=== PATIENT | female | born 1940 | race Caucasian/White ===

== ENCOUNTER 2019-08-03 21:58 | Emergency (ER) | payer MEDICARE, SELFPAY ==
--- NOTE | ~2019-08-03 | CT_ITS ---
EXAMINATION: CT brain wo con EXAM DATE: 08/03/2019 23:48 INDICATION: Fell 3 days ago, hit head on floor. TECHNIQUE: Spiral CT of the head was performed without contrast. Axial, coronal and sagittal images were reviewed. The dose-length product (DLP) for this examination was 605.33 mGy-cm. The exposure w as tailored according to patient size, and iterative reconstruction (ASIR) was used as additional dos e reduction technique. There is no prior study for comparison. FINDINGS: There is large mass which appears to be extra-axial, overlying the right frontal lobe, paulette uring 6 x 4 x 5 cm with peripheral calcification, bulging the falx toward the left. This most likely a large meningioma. There is mild white matter low density bilaterally, partly microangiopathy but ca n't exclude some amount of edema from mass effect of this mass. No acute intraparenchymal hemorrhage, subarachnoid or subdural hemorrhage. No hydrocephalus. There is moderate cerebral atrophy. The soft tissue is unremarkable. IMPRESSION: 1. No acute intracranial findings. 2. Large mass most likely meningioma overlying right frontal lobe causing mass effect on frontal lob e and falx. Consider follow-up nonemergent neurosurgical consultation. Reviewed, dictated and finalized at location A. ING DIRECTOR IMPRESSION: 1. No acute intracranial findings. 2. Large mass most likely meningioma overlying right frontal lobe causing mass effect on frontal lobe and falx. Consider follow-up nonemergent neurosurgical consultation.
--- NOTE | ~2019-08-03 | XR_ITS ---
EXAMINATION: XR ribs RT 2V w CXR 2V EXAM DATE: 08/03/2019 23:00 INDICATION: Injury, worsening right lower rib pain posterolaterally. TECHNIQUE: Frontal projection of the upper right ribs, frontal projection of the lower right ribs, ob lique projection of the right ribs, frontal and lateral chest x-ray(s) for interpretation. There is no prior study for comparison. FINDINGS: Acute right ninth rib fracture posterolaterally. There is mild displacement. There is no so ft tissue abnormality seen. Pacemaker/AICD device. No confluent consolidation, pneumothorax or pleura l effusion suspected. IMPRESSION: Acute mildly displaced right ninth rib fracture posterolaterally. Reviewed, dictated and finalized at location A. AIDE
[2019-08-03 22:22] VITALS: BP 108/54; PULSE 79; RESP 20; TEMP 36.7; O2SAT 98
[2019-08-03 23:16] VITALS: BP 131/71; PULSE 78; RESP 16; O2SAT 97
--- NOTE | 2019-08-03 23:16 | ED.FALL ---
HPI - Fall General Chief Complaint: Fall Stated Complaint: rt rib pain s/p fall Time Seen by Provider: 08/03/19 22:02 Source: patient, family and RN notes reviewed Mode of arrival: ambulatory Limitations: no limitations History of Present Illness HPI Narrative: Pt is a 78 y/o female who presents to the ED with c/o worsening rt rib pain secondary to a fall happening 3 days ago. She notes that she fell down roughly 3 stairs at her home 3 days ago. Pt states that she injured her lt knee, lt ankle, and rt ribs during the fall. She notes that she likely struck her head during the fall, but denies any LOC. Pt's family member states that she was evaluated at an urgent care facility 3 days ago following the fall, and notes that she received negative X-Rays of her lt knee and lt ankle. She states that she has been able to walk since the fall, but notes that she has had worsening pain in her rt ribs since yesterday. Pt states that she has been taking Tylenol for her symptoms, but notes that the medication wasn't enough to alleviate her pain this evening. She states that she is currently taking ASA 81 mg. complaint: other (Rib pain secondary to fall) Onset (ago): day(s) (3) Fall from: down stairs (#) (3) Place fall occurred: home Loss of consciousness: none Symptoms prior to fall: none Context: tripped/slipped Location of injury: head and chest (rt ribs) Location of injury - extremities: Left: knee and ankle Associated symptoms (after fall): other (rt rib pain) Related Data Home Medications Medication Instructions Recorded Confirmed Adult Low Dose Aspirin 08/03/19 amlodipine 08/03/19 atorvastatin 08/03/19 eplerenone mg 08/03/19 glimepiride mg 08/03/19 hydralazine 08/03/19 lisinopril 08/03/19 metformin mg 08/03/19 metoprolol tartrate 08/03/19 mirabegron [Myrbetriq] mg PO 08/03/19 Allergies Allergy/AdvReac Type Severity Reaction Status Date / Time No Known Allergies Allergy Verified 08/03/19 22:28 Review of Systems Review of Systems: All systems reviewed & are unremarkable except as noted in HPI and below Musculoskeletal: Musculoskeletal: Reports other (rt rib pain) Neurologic: Reports other (Reports: head injury. Denies: LOC) [facility] Past Medical History Medical History Cardiac defibrillator in place Diabetes HTN (hypertension) Meningioma rt parietal Pacemaker Surgical History Surgical History History of lumpectomy of left breast History of right knee joint replacement Social History Social History Smoking status: Never smoker Exam Narrative: Exam Narrative: GENERAL: Well-appearing, well-nourished, and in no acute distress. HEAD: Normocephalic, atraumatic EYES: PERRLA and EOMI, conjunctiva clear without discharge THROAT:Mucous membranes moist, Oropharynx normal without erythema, exudate, peritonsillar swelling or fluctuance NECK: Supple, without lymphadenopathy or mass RESPIRATORY: No respiratory distress, Airway patent, Respirations non-labored, Clear to auscultation without rales, rhonchi or wheeze, right lateral rib tenderness, no swelling no ecchymosis HEART: Regular rate and rhythm. No murmur heard. Normal peripheral pulses. ABDOMEN: Soft, nontender, nondistended, normal active bowel sounds. No masses. No rebound or guarding, No organomegaly. EXTREMITIES: No edema, normal strength with full range of motion. SKIN: Warm, dry, normal color without rash NEURO: Alert and oriented x3. CN 2-12 grossly intact. No focal deficits. PSYCH: Normal mood and affect. Course Reevaluation(s) Reevaluation #1: I have discussed with patient son that about CT findings. Patient is aware of her meningioma and she has seen neurosurgery for it. Date: 08/04/19 Time: 00:16 Vital Signs Vital signs: Vital Signs Temperature 98.1 F 08/03/19 22:22 P
[2019-08-03] MEDS: TRAMADOL HCL 50 MG TABLET PO (23:57)
[2019-08-04 00:17] VITALS: BP 130/74; PULSE 72; RESP 16; O2SAT 98
[2019-08-04 01:24] VITALS: BP 128/76; PULSE 74; RESP 16; O2SAT 98
== END 2019-08-04 01:39 | disposition home or self-care (01) ==
PROVIDERS: Emergency Provider General Practice
DX: S22.31XA Fracture of one rib, right side, initial encounter for closed fracture (principal); S09.90XA Unspecified injury of head, initial encounter; E11.9 Type 2 diabetes mellitus without complications; I10 Essential (primary) hypertension; Z95.810 Presence of automatic (implantable) cardiac defibrillator; W10.9XXA Fall (on) (from) unspecified stairs and steps, initial encounter
CPT/HCPCS: 70450; 71045; 71101; 99284; A9270

== ENCOUNTER 2021-04-20 13:28 | Inpatient (IN) | payer MEDICARE, SELFPAY ==
[2021-04-20] VITALS (38 sets, daily range): BP systolic 81–145; BP diastolic 46–109; PULSE 50–151; RESP 14–33; TEMP 36.3–36.6; O2SAT 97; BMI 22.7
--- NOTE | ~2021-04-20 | US_ITS ---
EXAMINATION: US carotid duplex BI DATE: 04/21/2021 15:19 INDICATION: Encephalopathy with altered mental status and confusion. TECHNIQUE: Grayscale, color Doppler, and pulsed Doppler images of the cervical carotid arteries were obtained. The degree of vessel stenosis is placed in one of the following categories: normal, <50%, 5 0-69%, >=70% but less than near-occlusion, near-occlusion, or total occlusion. Note that percent sten osis relative to normal distal artery lumen diameter is indirectly measured from velocity measurement s as described by Cesar, et al. Radiology 2003; 229:340-346. COMPARISON: None. FINDINGS: RIGHT: The right common carotid artery (CCA) peak systolic velocity (PSV) is 76 cm/s. The right internal car otid artery (ICA) PSV is 102 cm/s. The right ICA end-diastolic velocity (EDV) is 11 cm/s. The right I CA/CCA PSV ratio is 1.4. Grayscale and color Doppler images yield an estimate of <50% diameter reduct ion from plaque in the ICA. The external carotid artery (ECA) PSV is 45 cm/s. There is antegrade flow in the right vertebral artery. LEFT: The left CCA PSV is 80 cm/s. The left ICA PSV is 58 cm/s. The left ICA EDV is 10 cm/s. The left ICA/C CA PSV ratio is 0.7. Grayscale and color Doppler images yield an estimate of <50% diameter reduction from plaque in the ICA. The ECA PSV is 42 cm/s. There is antegrade flow in the left vertebral artery. IMPRESSION: 1. <50% stenosis in the right internal carotid artery. 2. <50% stenosis in the left internal carotid artery. Reviewed, dictated and finalized at location A. HEAD STOCK CLERK
--- NOTE | ~2021-04-20 | CT_ITS ---
EXAMINATION: CT brain wo con EXAM DATE: 04/20/2021 14:42 INDICATION: Altered mental status. TECHNIQUE: Spiral CT of the head was performed without contrast. Axial, coronal and sagittal images were reviewed. The dose-length product (DLP) for this examination was 681.00 mGy-cm. The exposure w as tailored according to patient size, and iterative reconstruction (ASIR) was used as additional dos e reduction technique. Comparison is made to prior examination from 08/03/2019. FINDINGS: Peripherally calcified extra-axial mass overlying the right frontal lobe arising from the r ight side of the falx consistent with meningioma measuring about 6 cm. This is causing some bowing of the falx, size and appearance unchanged. There is no acute intraparenchymal hemorrhage. No evidence of intraparenchymal brain mass lesion. N o evidence of acute infarction. Please note that initial head CT has limited sensitivity for small o r acute infarctions. There is mild to moderate periventricular and subcortical hypodensity, nonspecif ic but probably related to small vessel ischemic disease. There is moderate to severe prominence of the sulci and ventricles related to cerebral atrophy. 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 There are no extra-axial collections. There is no mass effect or midline shift. The orbits are unremarkable. Soft tissue is unremarkable. The visualized sinuses and mastoid air cells are well a erated. IMPRESSION: 1. No acute intracranial findings. 2. Chronic age related findings. 3. Large meningioma unchanged. Reviewed, dictated and finalized at location A. Y LEVEL LAB TECHNICIAN
--- NOTE | 2021-04-20 13:39 | ECG_ITS ---
Measurements Intervals [place] Rate: 76 P: 65 [place]: 111 QRS: 11 QRSD: 129 T: 83 QT: 417 QTc: 469 Interpretive Statements ELECTRONIC ATRIAL PACEMAKER WITH INHIBITION ELECTRONIC VENTRICULAR PACEMAKER VENTRICULAR PREMATURE COMPLEX NO FURTHER INTERPRETATION IS POSSIBLE ATYPICAL ECG Electronically Signed On 04-20-2021 19:55:47 WEB SERVICES PROFESSIONAL by Duran Myles D.O.
[2021-04-20 14:24] LABS: Basophils Absolute Auto 0.1 K/mm3 (0.0-0.1); Basophils Percent Auto 0.7 % (0.2-1.2); Eosinophils Percent Auto 0.4 % (0-4.4); Hematocrit 38.1 % (37.0-47.0); Hemoglobin 12.7 g/dL (12.0-15.0); Immature Granulocyte Absolute 0.04 K/mm3 (0.00-0.031); Immature Granulocyte Percent A 0.4 % (0-0.5); Lymphocytes Absolute Auto 1.46 K/mm3 (0.9-3.2); Lymphocytes Percent Auto 16.1 % (18.3-44.2); Mean Corpuscular HGB Conc 33.3 g/dl (32-36); Mean Corpuscular Hemoglobin 29.1 pg (26-34); Mean Corpuscular Volume 87.2 fl (80-100); Mean Platelet Volume 8.9 fl (7.4-10.4); Monocytes Absolute Auto 0.5 K/mm3 (0.1-0.6); Monocytes Percent Auto 5.8 % (2.6-8.5); Neutrophils Absolute Auto 6.9 K/mm3 (1.3-6.7); Neutrophils Percent Auto 76.6 % (45.5-73.1); Platelet Count Result 314 k/mm3 (150-375); Red Blood Count 4.37 M/mm3 (4.2-5.4); Red Cell Distribution Width 13.1 % (11.5-14.5); White Blood Count 9.1 K/mm3 (4.5-10.0)
--- NOTE | 2021-04-20 14:25 | ED.AMS ---
HPI - Altered Mental Status General Chief Complaint: Altered Mental Status Stated Complaint: confused Time Seen by Provider: 04/20/21 14:03 Source: patient and family Mode of arrival: ambulatory Limitations: altered mental status History of Present Illness HPI narrative: 80-year-old female past medical history of pacer/ICD, diabetes. menigioma brought in for altered mental status. Patient usually alert and oriented x3 lives with family. Patient family states this morning she was unable to get out of bed or make her legs move. Afebrile, currently alert and oriented x2, she knows she is in [facility] and her name but does not know date of or president. Unable to get full review of systems currently the patient denies chest pain breath. Family states no vomiting, no falls, no shortness of breath or wheezing. Family does states she has had foul-smelling urine. No recent new medications. MD complaint: altered mental status and confusion Related Data Home Medications Medication Instructions Recorded Confirmed Adult Low Dose Aspirin 08/03/19 amlodipine 08/03/19 atorvastatin 08/03/19 eplerenone mg 08/03/19 glimepiride mg 08/03/19 hydralazine 08/03/19 lisinopril 08/03/19 metformin mg 08/03/19 metoprolol tartrate 08/03/19 mirabegron [Myrbetriq] mg PO 08/03/19 Allergies Allergy/AdvReac Type Severity Reaction Status Date / Time No Known Allergies Allergy Verified 08/03/19 22:28 Review of Systems Review of Systems: ROS unobtainable: Yes unobtainable due to mental status PMFSH Past Medical History Medical History (Updated 04/20/21 @ 16:01 by Yanique Ozuna MD) Cardiac defibrillator in place Diabetes HTN (hypertension) Meningioma rt parietal Pacemaker Surgical History Surgical History History of lumpectomy of left breast History of right knee joint replacement Social History Social History Smoking status: Never smoker Exam Narrative: General: alert, afebrile, attempting to answer all questions, confused Head: normocephalic, atraumatic Eyes: EOMI bilaterally, anicteric, no injection ENT: moist mucous membranes, oropharynx patent, no rhinorrhea Neck: supple, trachea midline, no JVD Chest: equal chest rise bilaterally, no chest wall trauma noted Lungs: clear to auscultation bilaterally, respirations unlabored CV: regular rate, no ESTRELLITA B, calf size equal bilaterally Abd: soft, non-distended, non-tender, no rebound, no gaurding, negative Brewer's : bladder non-distended EXT: no deformity noted, moving all extremities equally Skin: warm, dry, no pallor Neuro: alert, oriented x 3; CN 2-12 grossly intact, no dysarthria Psych: affect appropriate, though content normal Course Course Emergency Course: 80-year-old female with altered mental status for 1 day. Patient usually alert and oriented x3 ambulates without difficulty per family for today oriented x2 not talking and states she cannot move her legs due to being fatigued. Patient arrives afebrile, oriented x2 no complaints unable to get full review of systems due to altered mental status. Patient does have a history of meningioma. No new focal weakness, no dysarthria, cranial nerves grossly intact. CT brain with no acute process, portable chest x-ray with no acute process patient has a WBC of 9.1, with no left shift. UA straight cath with 4+ bacteriuria few white cells urine culture pending. Patient with no history of UTI will start ceftriaxone and admit for UTI and AMS. Family aware and agree with plan. Reevaluation(s) Reevaluation #1: Speaking a little bit morem,a ferbrile, IVF and antibiotic infused, await bed. Date: 04/20/21 Time: 16:55 Consultations Consultation #1: Spoke with hospitalist regarding patient, agrees with admission Date: 04/20/21 Time: 15:30 Vital Signs Vital signs: Vital Signs Temperature
[2021-04-20 14:34] LABS: Alanine Aminotransferase 21 U/L (4-35); Albumin Level 4.2 g/dL (3.5-5.1); Alkaline Phosphatase 72 U/L (38-126); Anion Gap 11 mmol/L (8-16); Aspartate Amino Transferase 24 U/L (14-36); Bilirubin,Total 0.9 mg/dL (0.2-1.3); Blood Urea Nitrogen 24 mg/dL (7-17); Calcium 9.9 mg/dL (8.4-10.2); Carbon Dioxide 23 mmol/L (22-30); Chloride 96 mmol/L (98-107); Estimated CRCL calculation 36 ml/min; Estimated Glomerular Filt Rate 53; Glucose 281 mg/dL (65-110); Potassium 4.7 mmol/L (3.4-5.0); Sodium 130 mmol/L (137-145)
[2021-04-20 14:35] LABS: Prothrombin Time 12.7 Seconds (11.1-14.7)
[2021-04-20 14:36] LABS: Partial Thromboplastin Time 29.6 SECONDS (22.3-36.8)
[2021-04-20 14:46] LABS: Add Urine Microscopic? YES; Appearance Urine Cloudy (Clear); Bacteria Urine 4+ /hpf; Bilirubin Urine Negative (Negative); Blood Urine Negative (Negative); Color Urine Yellow (Yellow); Glucose Urine UA 3+ mg/dL (Negative); Ketones Urine Negative (Negative); Leukocyte Esterase Ur Negative LEU/UL (Negative); Mucus Urine Rare /lpf; Nitrate Urine Negative (Negative); Protein Urine Negative (Negative); RBC Urine 0-2 /hpf (0-2); Specific Grav Ur 1.014 (1.001-1.035); Squamous Epithelial Cell Urine Rare /hpf (Few); Urobilinogen Urine Negative mg/dL (<2.0)
[2021-04-20] MEDS: ONDANSETRON INJ 4 MG/2 ML VIAL IV PUSH (14:51)
[2021-04-20] MEDS: SODIUM CHLORIDE 0.9% IV 1,000 ML 999 ML IV CONT (14:52)
--- NOTE | 2021-04-20 15:04 | ECG_ITS ---
Measurements Intervals [place] Rate: 82 P: 76 DC: 94 QRS: -76 QRSD: 132 T: 105 QT: 417 QTc: 489 Interpretive Statements ATRIAL SENSE- ELECTRONIC VENTRICULAR PACEMAKER BASELINE ARTIFACT- V4-V5 NO FURTHER INTERPRETATION IS POSSIBLE ATYPICAL ECG Electronically Signed On 04-21-2021 17:39:34 TAIL RIPPER by Duran Myles D.O.
--- NOTE | 2021-04-20 18:37 | ADMGEN ---
This patient, Angelica Kim, was admitted to Medical Room 244-. Patient/family oriented to hospital policies and general routines including ID bracelet, bed and alarms, visiting hours, pain management, procedures, bathroom and other care routines, personal items, smoking policy, room service/diet, and visiting hours. Information on how to activate the Rapid Response Team has been discussed. Patient/Family are encouraged to report perceived risks to care and to ask questions if they do not understand what they are told or what they should do.
[2021-04-21] VITALS (9 sets, daily range): BP systolic 129–146; BP diastolic 50–72; PULSE 67–88; RESP 16–20; TEMP 36.1; O2SAT 97–100
--- NOTE | 2021-04-21 00:25 | PM.IMHP ---
H&P: HPI History of Present Illness Date/Time: 04/20/21 7010 this is a 80 year old female patient who is pleasantly confused. She was brought in to the emergency room with altered mental status. According to the family members the patient is alert orientated x3. However her son questions whether not she has dementia. The family stated that this morning she was unable to get out of bed or make her legs move. The patient is orientated to herself and is aware that she is in the hospital. However when I asked her who the president was she said her name. And she thinks this month is May. Patient denies any fever chills. The family stated that she had some foul-smelling urine today. No new medications no recent injuries. Patient's sodium was be 130. Chloride 96. BUN 24 and creatinine 1.0. Her urine was cloudy with 3+ glucose in only 7 and 9 wbc's and 4+ bacteria. The patient was started on ceftriaxone head CT was read as no acute intracranial findings. Chronic age-related findings. Large meningioma unchanged. The patient is being admitted to observation status on the date of service of 04/20/2021. Chief Complaint: Confusion Review of Systems Review of Systems: ROS unobtainable: Yes unobtainable due to mental status PMFSH Past Medical History Medical History (Updated 04/21/21 @ 00:30 by Nae Franco NP) Cardiac defibrillator in place Diabetes HTN (hypertension) Hyperlipidemia Meningioma rt parietal Pacemaker Surgical History Surgical History History of lumpectomy of left breast History of right knee joint replacement Family History Family History (Updated 04/21/21 @ 00:32 by Nae Franco NP) Unknown Unknown family medical history Social History Social History (Updated 04/21/21 @ 00:32 by Nae Franco NP) Social History: The patient lives with her family. She is listed as a full code. The patient is listed as being . She is listed as being retired as well. Her son Phill is listed as the medicare contact specialist Code status full code Smoking status: Never smoker Alcohol intake: never Substance use: never Spiritual care concerns: No Meds Home Medications and Allergies Home Medications Medication Instructions Recorded Confirmed Type eplerenone 50 mg PO DAILY 08/03/19 04/20/21 History glimepiride 6 mg PO DAILY 08/03/19 04/20/21 History hydralazine 50 mg BID 08/03/19 04/20/21 History lisinopril 20 mg PO BID 08/03/19 04/20/21 History metformin 1,000 mg PO BID 08/03/19 04/20/21 History metoprolol tartrate 100 mg PO BID 08/03/19 04/20/21 History mirabegron [Myrbetriq] 50 mg PO DAILY 08/03/19 04/20/21 History aspirin [Enteric Coated Aspirin] 81 mg PO DAILY 04/20/21 04/20/21 History atorvastatin 20 mg PO HS 04/20/21 04/20/21 History Allergies Allergy/AdvReac Type Severity Reaction Status Date / Time No Known Allergies Allergy Verified 08/03/19 22:28 Vital Signs Vital Signs - 24 hr 04/20/21 13:33 04/20/21 13:34 04/20/21 13:45 Temperature 36.3 C L Pulse Rate 90 50 L 100 Respiratory Rate 14 21 H 21 H Blood Pressure 126/61 Pulse Oximetry 04/20/21 13:46 04/20/21 14:00 04/20/21 14:01 Temperature Pulse Rate 89 122 H 112 H Respiratory Rate 33 H 15 14 Blood Pressure 120/109 H 134/73 Pulse Oximetry 04/20/21 14:15 04/20/21 14:16 04/20/21 14:47 Temperature Pulse Rate 98 112 H 81 Respiratory Rate 14 15 18 Blood Pressure 119/71 Pulse Oximetry 04/20/21 14:49 04/20/21 15:00 04/20/21 15:01 Temperature Pulse Rate 78 78 73 Respiratory Rate 14 17 16 Blood Pressure 117/63 133/53 L Pulse Oximetry 04/20/21 15:15 04/20/21 15:16 04/20/21 15:30 Temperature Pulse Rate 83 84 97 Respiratory Rate 14 19 16 Blood Pressure 113/87 Pulse Oximetry 04/20/21 15:31 04/20/21 15:45 04/20/21 15:46 Temperature Pulse Rate 113 H 151 H 149 H Respiratory Rate 16 14 17
[2021-04-21 01:02] LABS: Glucose Point of Care 135 mg/dl (65-105)
[2021-04-21 06:07] LABS: Basophils Absolute Auto 0.1 K/mm3 (0.0-0.1); Basophils Percent Auto 0.8 % (0.2-1.2); Eosinophils Absolute Auto 0.1 K/mm3 (0-0.3); Eosinophils Percent Auto 1.3 % (0-4.4); Hematocrit 34.9 % (37.0-47.0); Hemoglobin 11.3 g/dL (12.0-15.0); Immature Granulocyte Absolute 0.03 K/mm3 (0.00-0.031); Immature Granulocyte Percent A 0.4 % (0-0.5); Lymphocytes Percent Auto 22.8 % (18.3-44.2); Mean Corpuscular HGB Conc 32.4 g/dl (32-36); Mean Corpuscular Hemoglobin 29.3 pg (26-34); Mean Corpuscular Volume 90.4 fl (80-100); Mean Platelet Volume 8.9 fl (7.4-10.4); Monocytes Absolute Auto 0.7 K/mm3 (0.1-0.6); Monocytes Percent Auto 9.2 % (2.6-8.5); Neutrophils Absolute Auto 5.2 K/mm3 (1.3-6.7); Neutrophils Percent Auto 65.5 % (45.5-73.1); Platelet Count Result 249 k/mm3 (150-375); Red Blood Count 3.86 M/mm3 (4.2-5.4); Red Cell Distribution Width 13.2 % (11.5-14.5); White Blood Count 7.9 K/mm3 (4.5-10.0)
[2021-04-21 06:26] LABS: Hemoglobin A1C 6.8 % (<5.7)
[2021-04-21 06:27] LABS: Alanine Aminotransferase 16 U/L (4-35); Albumin Level 3.3 g/dL (3.5-5.1); Alkaline Phosphatase 65 U/L (38-126); Anion Gap 7 mmol/L (8-16); Aspartate Amino Transferase 19 U/L (14-36); Bilirubin,Total 0.6 mg/dL (0.2-1.3); Blood Urea Nitrogen 20 mg/dL (7-17); Calcium 9.1 mg/dL (8.4-10.2); Carbon Dioxide 23 mmol/L (22-30); Chloride 101 mmol/L (98-107); Estimated CRCL calculation 43 ml/min; Estimated Glomerular Filt Rate 60; Glucose 228 mg/dL (65-110); Magnesium 1.2 mg/dL (1.6-2.3); Potassium 4.3 mmol/L (3.4-5.0); Sodium 131 mmol/L (137-145)
[2021-04-21 06:29] LABS: Lactic Acid Reflex 1.2 mmol/L (0.7-2.1)
--- NOTE | 2021-04-21 06:29 | PHAR ---
VARIFIED Eplerenone 50 mg tablet TAKE ONE TABLET BY MOUTH EVERYDAY in pharmacy and sent back to floor (2MED) @ 06:30
[2021-04-21 07:02] LABS: Thyroid Stimulating Hormone Reflex 0.718 uIU/mL (0.465-4.68)
[2021-04-21 07:40] LABS: Glucose Point of Care 194 mg/dl (65-105)
--- NOTE | 2021-04-21 09:07 | PM.IMPN ---
Progress Note: A&P Assessment and Plan (1) Acute UTI: Code(s): N39.0 - Urinary tract infection, site not specified Status: Acute Assessment and Plan: This is a 80-year-old lady with this of dementia presenting with altered mental status. Urinalysis revealed pyuria. She was appropriately started on Rocephin while blood and urine cultures are pending. We will continue Rocephin while cultures are pending. (2) Altered mental status: Code(s): R41.82 - Altered mental status, unspecified Status: Acute Assessment and Plan: This is likely acute metabolic encephalopathy in the setting of an acute urinary infection. Patient may carry an underlying diagnosis of dementia. patient was previously with brain hemangioma. repeat head CT shows an unchanged meningioma Carotid Dopplers and an echo have been ordered, and the results are pending at the time of this dictation. The patient is pleasantly confused. Patient may also need a rn progressive care consult for placement. (3) HTN (hypertension): Code(s): I10 - Essential (primary) hypertension Status: Chronic Assessment and Plan: patient blood pressure has been on the low side, with BP as low as 81/49. Overall her blood pressure remains soft in the 99/49 - 125/63 range. will hold her home blood pressure medications wall monitoring her closely. Will allow for permissive hypertension and a permissive blood pressure of 140/90 given her presentation with altered mentation. (4) Hyperlipidemia: Code(s): E78.5 - Hyperlipidemia, unspecified Status: Chronic Assessment and Plan: Continue with atorvastatin (5) Diabetes: Code(s): E11.9 - Type 2 diabetes mellitus without complications Status: Chronic Assessment and Plan: Fasting blood sugar was 228. Accu-Chek this morning was 194. ContinueAccu-Cheks AC and HS with sliding scale insulin. Continue with metformin and glimepiride. hemoglobin A1c is at goal at 6.8. Subjective Date/time seen: 04/21/21 09:07 S: patient was out of bed to chair today. She is sitting comfortably and ordering her breakfast. She did not have any complaints. She did not appear to be in any distress. Review of Systems Review of Systems: ROS unobtainable: Yes unobtainable due to mental status ENT: Reports Normal hearing present Neurologic: Reports Normal hearing present Exam Const: General: cooperative, healthy appearing, comfortable, no acute distress, well developed, alert, awake and Physically active Nutritional Appearance: average body habitus and well nourished Orientation/consciousness: oriented to person and oriented to place Limitations: altered mental status HENMT: Head: normal to inspection, No palpable skull fracture present, normocephalic and atraumatic Ears: hearing grossly normal bilaterally and external ears normal General nose exam: Normal external nose present Mouth: Yes Normal oral and palatal mucosa present Throat: posterior oropharynx normal Eyes: General: appearance normal, both eyes and all related structures Alignment and Position: alignment normal Periorbital: periorbital findings normal Eyelids: eyelids normal Conjunctivae: conjunctivae normal Sclera: sclerae normal Cornea: corneas normal Pupils: Pupil accommodation reflex normal EOM: EOMs intact bilaterally Neck: Neck: normal visual inspection Thyroid: thyroid normal Carotids: normal carotid upstroke Lymphatic: no lymphadenopathy noted Chest: Chest palpation & inspection: normal inspection of the chest Resp: Effort & Inspection: normal respiratory effort Auscultation: clear to auscultation bilaterally Percussion: percussion normal Cardio: Palpation: normal PMI Rate: regular rate Rhythm: regular rhythm Heart sounds: S1 normal heart sound present and S2 normal heart sound present Peripheral pulses: Peripheral pulses 2+ throughout GI: Inspection: normal to inspection Auscultation
[2021-04-21] MEDS: metFORMIN HCL 500 MG TABLET 1000 MG PO ×2 (09:26→16:24)
[2021-04-21] MEDS: ASPIRIN 81 MG ENTERIC TABLET PO (09:27)
[2021-04-21] MEDS: MIRABEGRON 50 MG ER TABLET PO (09:27)
[2021-04-21] MEDS: GLIMEPIRIDE 2 MG TABLET 6 MG PO (09:27)
--- NOTE | 2021-04-21 11:43 | WPDNEURCNPN ---
Assessment and Plan Additional Plan 1. TIA versus seizures for 2 atrial fibrillation with cardiac defibrillator in place 3. Diabetes mellitus 4. Hypertension 5. 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 She was brought to the emergency room with the complaint of change in the mental status and as per the information available from the family member patient has been awake alert oriented x3 on the day of admission she was unable to get out of bed or make her legs move patient was oriented to herself and aware that she was in the hospital but she was not able to give any further information to the initial physician she thought this month of May she was also noted to have foul-smelling urine but no history of new medications or recent injuries her initial sodium was 130 with chloride of 96 BUN 24 with creatinine of 1.0 urine with 3+ glucose and 9 WBCs and 4+ bacteria she was started on ceftriaxone, CT scan was done in the emergency room which revealed no evidence of bleed or Space-Occupying Lesion large meningioma was noted which has been noted previously also and it was unchanged patient does have a history of cardiac the [place] latter in place in addition to the ongoing history of 1. Hypertension 2. Diabetes mellitus 3. 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, CT scan of the head revealed no acute intracranial findings except the large meningioma peripherally calcified overlying the right frontal lobe and arising from the right side of the falx measuring about 6cm but unchanged compared to previous studies, blood sugar was 233 with hemoglobin A1c of 6.8 Review of Systems Review of Systems: All systems reviewed & are unremarkable except as noted in HPI and below PMFSH Past Medical History Medical History Cardiac defibrillator in place Diabetes HTN (hypertension) Hyperlipidemia Meningioma rt parietal Pacemaker Surgical History Surgical History History of lumpectomy of left breast History of right knee joint replacement Family History Family History Unknown Unknown family medical history Social History Social History Social History: The patient lives with her family. She is listed as a full code. The patient is listed as being . She is listed as being retired as well. Her son Phill is listed as the breakdown person Code status full code Smoking status: Never smoker Alcohol intake: never Substance use: never Spiritual care concerns: No Meds Home Medications and Allergies Home Medications Medication Instructions Recorded Confirmed Type eplerenone 50 mg PO DAILY 08/03/19 04/20/21 History glimepiride 6 mg PO DAILY 08/03/19 04/20/21 History hydralazine 50 mg BID 08/03/19 04/20/21 History lisinopril 20 mg PO BID 08/03/19 04/20/21 History metformin 1,000 mg PO BID 08/03/19 04/20/21 History metoprolol tartrate 100 mg PO BID 08/03/19 04/20/21 History mirabegron [Myrbetriq] 50 mg PO DAILY 08/03/19 04/20/21 History aspirin [Enteric Coated Aspirin] 81 mg PO DAILY 04/20/21 04/20/21 History atorvastatin 20 mg PO HS 04/20/21 04/20/21 History Allergies Allergy/AdvReac Type Severity Reaction Status Date / Time No Known Allergies Allergy Verified 08/03/19 22:28 Vital Signs Vital Signs - 24 hr 04/20/21 13:33 04/20/21 13:34 04/20/21 13:45 Temperature 36.3 C L Pulse Rate 90 50 L 100 Respiratory Rate 14 21 H 21 H Blood Pressure 126/61 Pulse Oximetry 04/20/21 13:4
[2021-04-21 11:45] LABS: Glucose Point of Care 233 mg/dl (65-105)
[2021-04-21] MEDS: INSULIN ASPART (*BKC) 100 UNITS/ML SUB-Q (12:06)
[2021-04-21 16:30] LABS: Glucose Point of Care 181 mg/dl (65-105)
[2021-04-21] MEDS: ATORVASTATIN 20 MG TABLET PO (20:51)
[2021-04-22] VITALS (12 sets, daily range): BP systolic 106–142; BP diastolic 50–73; PULSE 77–93; RESP 14–20; TEMP 36.1–36.3; O2SAT 98
--- NOTE | 2021-04-22 | ECHO_ITS ---
Patient Info Name: Angelica Kim Age: 80 years : 1940 Gender: Female Ht: 67 in Wt: 145 lbs BSA: 1.77 m2 HR: 75 bpm BP: 146 / 67 mmHg Heart Rhythm: Sinus Rhythm Technical Quality: Fair Exam Date: 04/22/2021 2:42 PM Exam Location: [facility] Pulmonary Patient Status: Inpatient Admit Date: 04/21/2021 Staff Ordering Physician: Nae Franco NP Power Screwdriver Operator: Irma Durbin RDCS Attending Provider: Adeline Mtz MD Referring Physician: Joan ESQUIVEL; Exam Type: CA echo doppler color flow Study Info Indications - CONFUSION Complete two-dimensional, color flow and Doppler transthoracic echocardiogram is performed. Summary 1. Complete two-dimensional, color flow and Doppler transthoracic echocardiogram is performed. 2. There is mild concentric increased left ventricular wall thickness. 3. Left ventricular systolic function is normal, estimated at 60-65%. 4. Linear artifact in right ventricle suggestive of catheter(s), pacemaker lead(s), or ICD lead(s). 5. There is mild aortic valve sclerosis. 6. The mitral valve annulus is mildly calcified. Left Ventricle Left ventricular chamber dimension is normal. Left ventricular systolic function is normal, estimated at 60-65%. There is mild concentric increased left ventricular wall thickness. The left ventricular diastolic function is grade I diastolic dysfunction. Right Ventricle Linear artifact in right ventricle suggestive of catheter(s), pacemaker lead(s), or ICD lead(s). Left Atria Left atrial chamber dimension is mildly enlarged. Right Atria Right atrial chamber dimension is normal. Linear artifact in the right atrium suggestive of catheter(s), pacemaker lead(s), or ICD lead(s). Aortic Valve The aortic valve is trileaflet. There is mild aortic valve sclerosis. Pulmonic Valve The pulmonic valve is not well visualized. Mitral Valve The mitral valve has normal leaflets. The mitral valve annulus is mildly calcified. Tricuspid Valve The tricuspid valve leaflets are normal. Pericardium/Pleural The pericardium appears normal. Aorta The aortic root size at the sinus of Valsalva is normal. Left Ventricular Outflow Tract Name Value Normal LVOT 2D LVOT Diameter 2.0 cm LVOT Doppler LVOT Peak Gradient 4 mmHg LVOT Mean Gradient 2 mmHg LVOT VTI 19 cm LVOT VTI/AV VTI Ratio 0.9 LVOT Stroke Volume 62 ml Pulmonic Valve Name Value Normal RVOT Doppler RVOT Peak Gradient 2 mmHg PV Doppler PV Peak Gradient 2 mmHg Mitral Valve Name
[2021-04-22 02:53] LABS: Glucose Point of Care 181 mg/dl (65-105)
[2021-04-22 08:13] LABS: Anion Gap 6 mmol/L (8-16); Blood Urea Nitrogen 15 mg/dL (7-17); Calcium 9.7 mg/dL (8.4-10.2); Carbon Dioxide 25 mmol/L (22-30); Chloride 104 mmol/L (98-107); Estimated CRCL calculation 48 ml/min; Estimated Glomerular Filt Rate > 60; Glucose 179 mg/dL (65-110); Potassium 4.3 mmol/L (3.4-5.0); Sodium 135 mmol/L (137-145)
[2021-04-22 08:13] LABS: Glucose Point of Care 163 mg/dl (65-105)
[2021-04-22] MEDS: GLIMEPIRIDE 2 MG TABLET 6 MG PO (08:44)
[2021-04-22] MEDS: MIRABEGRON 50 MG ER TABLET PO (08:44)
[2021-04-22] MEDS: METOPROLOL TARTRATE 50 MG TAB 100 MG PO ×2 (08:44→20:53)
[2021-04-22] MEDS: lisinopriL 20 MG TABLET PO ×2 (08:46→16:41)
[2021-04-22] MEDS: ASPIRIN 81 MG ENTERIC TABLET PO (08:46)
[2021-04-22] MEDS: metFORMIN HCL 500 MG TABLET 1000 MG PO ×2 (08:46→16:41)
--- NOTE | 2021-04-22 09:10 | PM.IMPN ---
Progress Note: A&P Assessment and Plan (1) Acute UTI: Code(s): N39.0 - Urinary tract infection, site not specified Status: Acute Assessment and Plan: This is a 80-year-old lady with this of dementia presenting with altered mental status. Urinalysis revealed pyuria. Urine culture have resulted Klebsiella, which is sensitive to ceftriaxone. We will continue Rocephin while patient is being evaluated for a possible TIA. (2) Altered mental status: Code(s): R41.82 - Altered mental status, unspecified Status: Acute Assessment and Plan: This is likely acute metabolic encephalopathy in the setting of an acute urinary infection. Patient may carry an underlying diagnosis of dementia. Patient was previously diagnosed with brain hemangioma. Repeat head CT shows an unchanged meningioma. Carotid Dopplers did not reveal any clinically significant stenosis. An echo have been ordered, and the results are pending at the time of this dictation. The patient is pleasantly confused. Patient may also need a women's health care nurse practitioner consult for placement. (3) HTN (hypertension): Code(s): I10 - Essential (primary) hypertension Status: Chronic Assessment and Plan: patient blood pressure has been on the low side, with BP as low as 81/49 on presentation. Her blood pressure has improved after holding her blood pressure medication. Blood pressure currently in the 132/58-146/67 range. We will allow for permissive hypertension and a permissive blood pressure of 140/90 given her presentation with altered mentation. (4) Hyperlipidemia: Code(s): E78.5 - Hyperlipidemia, unspecified Status: Chronic Assessment and Plan: Continue with atorvastatin (5) Diabetes: Code(s): E11.9 - Type 2 diabetes mellitus without complications Status: Chronic Assessment and Plan: Fasting blood sugar was 179. Accu-Chek are in the 163-181 range. Continue Accu-Cheks AC and HS with sliding scale insulin. Continue with metformin and glimepiride. hemoglobin A1c is at goal at 6.8. Subjective Date/time seen: 04/22/21 09:10 S: Patient was examined at the bedside. She ate 100% of her breakfast. She did not have any complaints. She did not sleep well at night, although better than the day before. She does not seem to be in distress. Review of Systems Review of Systems: ROS unobtainable: Yes unobtainable due to mental status ENT: Reports Normal hearing present Neurologic: Reports Normal hearing present Exam Const: General: cooperative, healthy appearing, comfortable, no acute distress, well developed, alert, awake and Physically active Nutritional Appearance: average body habitus and well nourished Orientation/consciousness: oriented to person and oriented to place Limitations: altered mental status HENMT: Head: normal to inspection, No palpable skull fracture present, normocephalic and atraumatic Ears: hearing grossly normal bilaterally and external ears normal General nose exam: Normal external nose present Mouth: Yes Normal oral and palatal mucosa present Throat: posterior oropharynx normal Eyes: General: appearance normal, both eyes and all related structures Alignment and Position: alignment normal Periorbital: periorbital findings normal Eyelids: eyelids normal Conjunctivae: conjunctivae normal Sclera: sclerae normal Cornea: corneas normal Pupils: Pupil accommodation reflex normal EOM: EOMs intact bilaterally Neck: Neck: normal visual inspection Thyroid: thyroid normal Carotids: normal carotid upstroke Lymphatic: no lymphadenopathy noted Chest: Chest palpation & inspection: normal inspection of the chest Resp: Effort & Inspection: normal respiratory effort Auscultation: clear to auscultation bilaterally Percussion: percussion normal Cardio: Palpation: normal PMI Rate: regular rate Rhythm: regular rhythm Heart sounds: S1 normal heart sound present and S2 normal h
[2021-04-22 09:18] LABS: Basophils Absolute Auto 0.1 K/mm3 (0.0-0.1); Basophils Percent Auto 0.9 % (0.2-1.2); Eosinophils Absolute Auto 0.1 K/mm3 (0-0.3); Eosinophils Percent Auto 2.1 % (0-4.4); Hematocrit 36.5 % (37.0-47.0); Hemoglobin 11.8 g/dL (12.0-15.0); Immature Granulocyte Absolute 0.03 K/mm3 (0.00-0.031); Immature Granulocyte Percent A 0.5 % (0-0.5); Lymphocytes Absolute Auto 1.67 K/mm3 (0.9-3.2); Lymphocytes Percent Auto 26.4 % (18.3-44.2); Mean Corpuscular HGB Conc 32.3 g/dl (32-36); Mean Corpuscular Hemoglobin 28.8 pg (26-34); Mean Platelet Volume 8.8 fl (7.4-10.4); Monocytes Absolute Auto 0.8 K/mm3 (0.1-0.6); Monocytes Percent Auto 12.2 % (2.6-8.5); Neutrophils Absolute Auto 3.7 K/mm3 (1.3-6.7); Neutrophils Percent Auto 57.9 % (45.5-73.1); Platelet Count Result 277 k/mm3 (150-375); White Blood Count 6.3 K/mm3 (4.5-10.0)
[2021-04-22] MEDS: hydrALAZINE HCL 50 MG TABLET BY MOUTH ×2 (10:07→16:41)
[2021-04-22 11:57] LABS: Glucose Point of Care 185 mg/dl (65-105)
[2021-04-22 16:37] LABS: Glucose Point of Care 155 mg/dl (65-105)
[2021-04-22] MEDS: ATORVASTATIN 20 MG TABLET PO (20:53)
[2021-04-22 21:07] LABS: Glucose Point of Care 158 mg/dl (65-105)
[2021-04-23] VITALS (13 sets, daily range): BP systolic 119–128; BP diastolic 50–59; PULSE 66–87; RESP 18–20; TEMP 36.1–36.2; O2SAT 98–100
[2021-04-23 06:55] LABS: Basophils Absolute Auto 0.1 K/mm3 (0.0-0.1); Basophils Percent Auto 1.3 % (0.2-1.2); Eosinophils Absolute Auto 0.2 K/mm3 (0-0.3); Eosinophils Percent Auto 2.8 % (0-4.4); Hematocrit 37.4 % (37.0-47.0); Hemoglobin 12.5 g/dL (12.0-15.0); Immature Granulocyte Absolute 0.03 K/mm3 (0.00-0.031); Immature Granulocyte Percent A 0.4 % (0-0.5); Lymphocytes Absolute Auto 2.06 K/mm3 (0.9-3.2); Lymphocytes Percent Auto 25.9 % (18.3-44.2); Mean Corpuscular HGB Conc 33.4 g/dl (32-36); Mean Corpuscular Hemoglobin 29.9 pg (26-34); Mean Corpuscular Volume 89.5 fl (80-100); Mean Platelet Volume 9.1 fl (7.4-10.4); Monocytes Absolute Auto 0.9 K/mm3 (0.1-0.6); Monocytes Percent Auto 11.8 % (2.6-8.5); Neutrophils Absolute Auto 4.6 K/mm3 (1.3-6.7); Neutrophils Percent Auto 57.8 % (45.5-73.1); Platelet Count Result 253 k/mm3 (150-375); Red Blood Count 4.18 M/mm3 (4.2-5.4); Red Cell Distribution Width 13.2 % (11.5-14.5)
[2021-04-23 07:11] LABS: Anion Gap 8 mmol/L (8-16); Blood Urea Nitrogen 16 mg/dL (7-17); Calcium 9.8 mg/dL (8.4-10.2); Carbon Dioxide 23 mmol/L (22-30); Chloride 102 mmol/L (98-107); Estimated CRCL calculation 48 ml/min; Estimated Glomerular Filt Rate > 60; Glucose 182 mg/dL (65-110); Potassium 4.6 mmol/L (3.4-5.0); Sodium 133 mmol/L (137-145)
--- NOTE | 2021-04-23 07:44 | PM.IMPN ---
Progress Note: A&P Assessment and Plan (1) Acute UTI: Code(s): N39.0 - Urinary tract infection, site not specified Status: Acute Assessment and Plan: This is a 80-year-old lady without a previous history of dementia presenting with altered mental status. Urinalysis revealed pyuria. Urine culture have resulted Klebsiella, which is sensitive to ceftriaxone. We will continue Rocephin while patient is being evaluated for a possible TIA. (2) Altered mental status: Code(s): R41.82 - Altered mental status, unspecified Status: Acute Assessment and Plan: This is likely acute metabolic encephalopathy in the setting of an acute urinary infection. Patient may carry an underlying diagnosis of dementia versus mild cognitive decline. Today the patient is awake alert fully oriented X 4. Patient was previously diagnosed with brain hemangioma. Repeat head CT shows an unchanged meningioma. Carotid Dopplers did not reveal any clinically significant stenosis. An echo have been ordered, revealing a normal left ventricular systolic function, estimated at 60-65%. The patient is oriented. An EEG has been ordered per Neurology recommendation. (3) HTN (hypertension): Code(s): I10 - Essential (primary) hypertension Status: Chronic Assessment and Plan: patient blood pressure has been on the low side, with BP as low as 81/49 on presentation. Her blood pressure has improved after holding her blood pressure medication. Blood pressure currently in the 128/58-119/59 range. We will allow for permissive hypertension and a permissive blood pressure of 140/90 given her presentation with altered mentation. (4) Hyperlipidemia: Code(s): E78.5 - Hyperlipidemia, unspecified Status: Chronic Assessment and Plan: Continue with atorvastatin (5) Diabetes: Code(s): E11.9 - Type 2 diabetes mellitus without complications Status: Chronic Assessment and Plan: Fasting blood sugar was 182. Accu-Chek was 273. Continue Accu-Cheks AC and HS with sliding scale insulin. Continue with metformin and glimepiride. hemoglobin A1c is at goal at 6.8. Subjective Date/time seen: 04/23/21 07:44 S: Patient is examined at the bedside. She is awake alert oriented. She feels cold today. She had a good night of sleep and ate 100% of her breakfast tray. She had no other active complaints. Review of Systems Review of Systems: ROS unobtainable: Yes unobtainable due to mental status ENT: Reports Normal hearing present Neurologic: Reports Normal hearing present Exam Const: General: cooperative, healthy appearing, comfortable, no acute distress, well developed, alert, awake and Physically active Nutritional Appearance: average body habitus and well nourished Orientation/consciousness: oriented to person and oriented to place Limitations: altered mental status HENMT: Head: normal to inspection, No palpable skull fracture present, normocephalic and atraumatic Ears: hearing grossly normal bilaterally and external ears normal General nose exam: Normal external nose present Mouth: Yes Normal oral and palatal mucosa present Throat: posterior oropharynx normal Eyes: General: appearance normal, both eyes and all related structures Alignment and Position: alignment normal Periorbital: periorbital findings normal Eyelids: eyelids normal Conjunctivae: conjunctivae normal Sclera: sclerae normal Cornea: corneas normal Pupils: Pupil accommodation reflex normal EOM: EOMs intact bilaterally Neck: Neck: normal visual inspection Thyroid: thyroid normal Carotids: normal carotid upstroke Lymphatic: no lymphadenopathy noted Chest: Chest palpation & inspection: normal inspection of the chest Resp: Effort & Inspection: normal respiratory effort Auscultation: clear to auscultation bilaterally Percussion: percussion normal Cardio: Palpation: normal PMI Rate: regular rate Rhythm: regular rhythm
[2021-04-23 08:58] LABS: Glucose Point of Care 273 mg/dl (65-105)
[2021-04-23] MEDS: GLIMEPIRIDE 2 MG TABLET 6 MG PO (09:02)
[2021-04-23] MEDS: MIRABEGRON 50 MG ER TABLET PO (09:03)
[2021-04-23] MEDS: metFORMIN HCL 500 MG TABLET 1000 MG PO ×2 (09:03→16:24)
[2021-04-23] MEDS: ASPIRIN 81 MG ENTERIC TABLET PO (09:03)
[2021-04-23] MEDS: lisinopriL 20 MG TABLET PO (09:03)
[2021-04-23] MEDS: hydrALAZINE HCL 50 MG TABLET BY MOUTH (09:03)
[2021-04-23] MEDS: METOPROLOL TARTRATE 50 MG TAB 100 MG PO ×2 (09:03→21:21)
[2021-04-23] MEDS: INSULIN ASPART (*BKC) 100 UNITS/ML SUB-Q (09:06)
--- NOTE | 2021-04-23 11:37 | PCOTNOTE ---
Attempted to see pt. however pt. was unavailable due to bedside testing.
[2021-04-23 12:31] LABS: Glucose Point of Care 169 mg/dl (65-105)
[2021-04-23 16:19] LABS: Glucose Point of Care 162 mg/dl (65-105)
[2021-04-23] MEDS: ATORVASTATIN 20 MG TABLET PO (21:21)
[2021-04-24] VITALS (8 sets, daily range): BP systolic 116–126; BP diastolic 57–66; PULSE 70–129; RESP 16–18; TEMP 36.3–36.4; O2SAT 94–98
[2021-04-24 06:13] LABS: Basophils Absolute Auto 0.1 K/mm3 (0.0-0.1); Basophils Percent Auto 1.2 % (0.2-1.2); Eosinophils Absolute Auto 0.2 K/mm3 (0-0.3); Eosinophils Percent Auto 3.2 % (0-4.4); Hematocrit 34.9 % (37.0-47.0); Hemoglobin 11.4 g/dL (12.0-15.0); Immature Granulocyte Absolute 0.04 K/mm3 (0.00-0.031); Immature Granulocyte Percent A 0.5 % (0-0.5); Lymphocytes Absolute Auto 1.97 K/mm3 (0.9-3.2); Mean Corpuscular HGB Conc 32.7 g/dl (32-36); Mean Corpuscular Hemoglobin 29.1 pg (26-34); Mean Platelet Volume 9.1 fl (7.4-10.4); Monocytes Absolute Auto 0.8 K/mm3 (0.1-0.6); Monocytes Percent Auto 11.1 % (2.6-8.5); Neutrophils Absolute Auto 4.2 K/mm3 (1.3-6.7); Platelet Count Result 278 k/mm3 (150-375); Red Blood Count 3.92 M/mm3 (4.2-5.4); Red Cell Distribution Width 13.2 % (11.5-14.5); White Blood Count 7.3 K/mm3 (4.5-10.0)
[2021-04-24 06:20] LABS: Anion Gap 7 mmol/L (8-16); Blood Urea Nitrogen 18 mg/dL (7-17); Calcium 9.5 mg/dL (8.4-10.2); Carbon Dioxide 24 mmol/L (22-30); Chloride 103 mmol/L (98-107); Estimated CRCL calculation 43 ml/min; Estimated Glomerular Filt Rate 60; Glucose 190 mg/dL (65-110); Potassium 4.5 mmol/L (3.4-5.0); Sodium 134 mmol/L (137-145)
[2021-04-24 07:28] LABS: Glucose Point of Care 153 mg/dl (65-105)
--- NOTE | 2021-04-24 07:46 | PM.DS ---
DS: Admitting Diagnosis Discharge Date 04/24/2021 Admitting Diagnosis (1) Acute UTI: (2) Altered mental status: (3) HTN (hypertension): (4) Hyperlipidemia: (5) Diabetes: DS: Discharge Diagnosis Discharge Diagnosis (1) Altered mental status: Code(s): R41.82 - Altered mental status, unspecified Status: Acute Assessment and Plan: This is likely acute metabolic encephalopathy in the setting of an acute urinary infection. Patient may carry an underlying diagnosis of dementia versus mild cognitive decline. Today the patient is awake alert fully oriented X 3. Patient was previously diagnosed with brain hemangioma. Repeat head CT shows an unchanged meningioma. Carotid Dopplers did not reveal any clinically significant stenosis. An echo have been ordered, revealing a normal left ventricular systolic function, estimated at 60-65%. The patient is oriented. An EEG has been ordered per Neurology recommendation. (2) Acute UTI: Code(s): N39.0 - Urinary tract infection, site not specified Status: Acute Assessment and Plan: This is a 80-year-old lady without a previous history of dementia presenting with altered mental status. Urinalysis revealed pyuria. Urine culture have resulted Klebsiella, which is sensitive to ceftriaxone. We will continue Rocephin while patient is being evaluated for a possible TIA. (3) HTN (hypertension): Code(s): I10 - Essential (primary) hypertension Status: Chronic Assessment and Plan: patient blood pressure has been on the low side, with BP as low as 81/49 on presentation. Her blood pressure has improved after holding some of her blood pressure medications. Blood pressure currently 116/57. We will stop hydralazine and eplerenone. We will resume lisinopril at a lower dose. Metoprolol will be continued at half dose. We will allow for permissive hypertension and a permissive blood pressure of 140/90 given her presentation with altered mentation. patient is being discharge to [facility]. Day will check the blood pressure twice a day. Blood pressure medication further adjustment will be performed by her primary care physician patient will be scheduled to follow up within 2-4 weeks with Cardiology. At that time additional adjustments can also be made. (4) Hyperlipidemia: Code(s): E78.5 - Hyperlipidemia, unspecified Status: Chronic Assessment and Plan: Continue with atorvastatin (5) Diabetes: Code(s): E11.9 - Type 2 diabetes mellitus without complications Status: Chronic Assessment and Plan: Fasting blood sugar was 190. Accu-Chek was 153. Continue Accu-Cheks AC and HS with sliding scale insulin. Continue with metformin and glimepiride. hemoglobin A1c is at goal at 6.8. DS: Summary Hospital Course Reason for hospitalization: Altered mental status. Hospital Course: Please refer to admission H& P. Briefly, this is a 80 year old female patient who was brought in to the emergency room with altered mental status. on arrival to the emergency department the patient is pleasantly confused. According to the family members the patient is alert orientated x3 At baseline. However her son questions whether not she has dementia. The family stated that on the morning of admission, she was unable to get out of bed or make her legs move. The patient is orientated to herself and is aware that she is in the hospital. However when I asked her who the president was she said her name. And she thinks this month is May. Patient denies any fever chills. The family stated that she had some foul-smelling urine prior to her admission. No new medications no recent injuries. Patient's sodium was be 130. Chloride 96. BUN 24 and creatinine 1.0. Her urine was cloudy with 3+ glucose in only 7 and 9 wbc's and 4+ bacteria. The patient was started on ceftriaxone. Head CT was read as no acute intracranial findings. Chronic age-related find
--- NOTE | 2021-04-24 08:03 | PM.IMPN ---
Progress Note: A&P Assessment and Plan (1) Altered mental status: Code(s): R41.82 - Altered mental status, unspecified Status: Acute Assessment and Plan: This is likely acute metabolic encephalopathy in the setting of an acute urinary infection. Patient may carry an underlying diagnosis of dementia versus mild cognitive decline. Today the patient is awake alert fully oriented X 3. Patient was previously diagnosed with brain hemangioma. Repeat head CT shows an unchanged meningioma. Carotid Dopplers did not reveal any clinically significant stenosis. An echo have been ordered, revealing a normal left ventricular systolic function, estimated at 60-65%. The patient is oriented. An EEG has been ordered per Neurology recommendation. (2) Acute UTI: Code(s): N39.0 - Urinary tract infection, site not specified Status: Acute Assessment and Plan: This is a 80-year-old lady without a previous history of dementia presenting with altered mental status. Urinalysis revealed pyuria. Urine culture have resulted Klebsiella, which is sensitive to ceftriaxone. We will continue Rocephin while patient is being evaluated for a possible TIA. (3) HTN (hypertension): Code(s): I10 - Essential (primary) hypertension Status: Chronic Assessment and Plan: patient blood pressure has been on the low side, with BP as low as 81/49 on presentation. Her blood pressure has improved after holding some of her blood pressure medications. Blood pressure currently 116/57. We will stop hydralazine and eplerenone. We will resume lisinopril at a lower dose. Metoprolol will be continued at half dose. We will allow for permissive hypertension and a permissive blood pressure of 140/90 given her presentation with altered mentation. patient is being discharge to [facility]. Day will check the blood pressure twice a day. Blood pressure medication further adjustment will be performed by her primary care physician patient will be scheduled to follow up within 2-4 weeks with Cardiology. At that time additional adjustments can also be made. (4) Hyperlipidemia: Code(s): E78.5 - Hyperlipidemia, unspecified Status: Chronic Assessment and Plan: Continue with atorvastatin (5) Diabetes: Code(s): E11.9 - Type 2 diabetes mellitus without complications Status: Chronic Assessment and Plan: Fasting blood sugar was 190. Accu-Chek was 153. Continue Accu-Cheks AC and HS with sliding scale insulin. Continue with metformin and glimepiride. hemoglobin A1c is at goal at 6.8. Subjective Date/time seen: 04/24/21 08:03 S: Patient was examined at the bedside. She is in very good spirits. She diet any complaints. Sleep is adequate. Appetite is robust. Patient is making progress with physical therapy. Review of Systems Review of Systems: ROS unobtainable: Yes unobtainable due to mental status Constitutional: Constitutional: Reports as per HPI Eyes: Eyes: Reports as per HPI ENT: Reports system reviewed and no additional complaints, except as documented and Reports Normal hearing present Cardiovascular: Cardiovascular: Reports as per HPI Respiratory: Respiratory: Reports as per HPI Gastrointestinal: Gastrointestinal: Reports as per HPI Genitourinary: Genitourinary: Reports no additional female genitourinary complaints Musculoskeletal: Musculoskeletal: Reports no additional musculoskeletal complaints Integumentary/Breasts: Skin/Breast: Reports system reviewed and no additional complaints, except as docu Neurologic: Reports system reviewed and no additional complaints, except as documented and Reports Normal hearing present Psychiatric: Psychiatric: Reports no additional psychiatric complaints Endocrine: Endocrine: Reports no additional endocrine complaints Hematologic/Lymphatic: Hematologic/Lymphatic: Reports no additional hematologic/lymphatic complaints Allergic/Immunologic: Aller
[2021-04-24] MEDS: GLIMEPIRIDE 2 MG TABLET 6 MG PO (08:23)
[2021-04-24] MEDS: MIRABEGRON 50 MG ER TABLET PO (08:24)
[2021-04-24] MEDS: metFORMIN HCL 500 MG TABLET 1000 MG PO (08:24)
[2021-04-24] MEDS: ASPIRIN 81 MG ENTERIC TABLET PO (08:24)
--- NOTE | 2021-04-24 10:18 | WPDNEUROLOGY ---
Neurology EEG Report General Information Date of Study: 04/23/21 TEST eeg DIAGNOSIS altered mental status CONDITION OF RECORDING awake drowsy and sleep EEG NUMBER [id number] CLINICAL HISTORY patient came into hospital couple of days ago with confusion, and and has constant eye movements and swallowing artifacts throughout the tracing EEG DESCRIPTION basic resting occipital frequency consists of low to medium voltage 8 to 9 hertz per 2nd alpha admixed with low to medium voltage 5 to 7 hertz per 2nd theta. Bilateral symmetrical sleep activity seen. Hyperventilation not done. Photic stimulation not done. Non paroxysmal. Nonfocal. Nonlateralizing. Multiple movement artifacts are noted throughout the tracing. IMPRESSION No significant abnormalities noted.
[2021-04-24] MEDS: lisinopriL 10 MG TABLET PO (11:00)
[2021-04-24] MEDS: METOPROLOL TARTRATE 50 MG TAB PO (11:00)
[2021-04-24 11:04] LABS: EDCOVIDSCREEN Negative (Negative)
[2021-04-24 11:44] LABS: Glucose Point of Care 172 mg/dl (65-105)
== END 2021-04-24 13:31 | DRG 689 ==
LOC: ANHED 16:01 → ANH2MED 17:39
PROVIDERS: Emergency Medicine; Nurse Practitioner; Admitting Provider Internal Medicine; Emergency Provider Emergency Medicine; PCP Internal Medicine; Visit Provider Internal Medicine
DX: N39.0 Urinary tract infection, site not specified (principal); G93.41 Metabolic encephalopathy; B96.1 Klebsiella pneumoniae [K. pneumoniae] as the cause of diseases classified elsewhere; Z23 Encounter for immunization; Z20.822 Contact with and (suspected) exposure to COVID-19; I10 Essential (primary) hypertension; E78.5 Hyperlipidemia, unspecified; F03.90 Unspecified dementia, unspecified severity, without behavioral disturbance, psychotic disturbance, mood disturbance, and anxiety; E11.9 Type 2 diabetes mellitus without complications; D32.0 Benign neoplasm of cerebral meninges; Z96.651 Presence of right artificial knee joint; Z95.810 Presence of automatic (implantable) cardiac defibrillator
CPT/HCPCS: 36415; 51701; 70450; 80048; 80053; 81001; 82948; 83036; 83605; 83735; 84443; 85025; 85610; 85730; 87040; 87077; 87086; 87088; 87186; 87426; 90471; 90653; 93005; 93306; 93880; 95816; 96361; 96365; 96375; 97116; 97162; 97165; 97530; 97535; 99285; A9270; C9803; G0008; G0378; J0696; J1815; J2405; J7030

== ENCOUNTER 2021-08-18 23:30 | Inpatient (IN) | payer MEDICARE, SELFPAY ==
--- NOTE | ~2021-08-18 | US_ITS ---
EXAMINATION: US abdomen limited DATE: 08/20/2021 08:01 INDICATION: Elevated bilirubin TECHNIQUE: Multiple grayscale and Doppler ultrasound images of the abdomen were obtained. COMPARISON: None available FINDINGS: Bowel gas obscures visualization of the pancreas. The visualized portions of the pancreas a re unremarkable. The liver is normal with normal echogenicity and echotexture. No surface nodularity. Normal hepatopetal flow in the main portal vein. A stone is present in the nondistended gallbladder. There is no gallbladder wall thickening or pericholecystic fluid. The normal common bile duct measur es 5 mm. There was no sonographic Brewer sign. IMPRESSION: 1. Cholelithiasis without evidence of cholecystitis. Reviewed, dictated and finalized at location D.
[2021-08-18 23:27] VITALS: BP 146/86; PULSE 79; RESP 17; TEMP 36.6; O2SAT 100
--- NOTE | 2021-08-18 23:39 | ED.GENADULT ---
HPI - General Adult General Chief complaint: Nausea/Vomiting/Diarrhea Stated complaint: n/v x 2 days Time Seen by Provider: 08/18/21 23:32 Source: patient Limitations: dementia History of Present Illness HPI narrative: 80-year-old female presents to the emergency department from a local halfway for evaluation of 2 days of nausea and vomiting. senior living states that the patient has had large amounts of emesis that was green in color. senior living told EMS they were concerned due to the large amount of emesis. Upon arrival to the emergency department patient denies any abdominal pain he denies any current nausea. Patient does have dementia at baseline. Related Data Home Medications Medication Instructions Recorded Confirmed Myrbetriq 50 mg PO DAILY 08/03/19 04/20/21 glimepiride 6 mg PO DAILY 08/03/19 04/20/21 metformin 1,000 mg PO BID 08/03/19 04/20/21 aspirin [Enteric Coated Aspirin] 81 mg PO DAILY 04/20/21 04/20/21 atorvastatin 20 mg PO HS 04/20/21 04/20/21 donepezil 5 mg PO HS 08/18/21 ergocalciferol (vitamin D2) 1,250 mcg PO WEEKLY 08/18/21 [Vitamin D2] dulaglutide [Trulicity] mg SUBCUT 08/19/21 Allergies Allergy/AdvReac Type Severity Reaction Status Date / Time No Known Allergies Allergy Verified 08/18/21 23:37 Review of Systems Review of Systems: patient denies abdominal pain or any current nausea All systems reviewed & are unremarkable except as noted in HPI and below ROS unobtainable: Yes unobtainable due to mental status PMFSH Past Medical History Medical History (Updated 08/19/21 @ 03:54 by Nahum Ochoa MD) Cardiac defibrillator in place Diabetes HTN (hypertension) Hyperlipidemia Meningioma rt parietal Pacemaker Surgical History Surgical History History of lumpectomy of left breast History of right knee joint replacement Family History Family History Unknown Unknown family medical history Social History Social History Social History: The patient lives with her family. She is listed as a full code. The patient is listed as being . She is listed as being retired as well. Her son Phill is listed as the marketing/sales person Code status full code Smoking status: Never smoker Alcohol intake: never Substance use: never Spiritual care concerns: No Exam Narrative: APPEARANCE: Well appearing, no pain, no distress, well-nourished. HEAD: normocephalic, atraumatic. EYES: PERRLA/EOMI, conjunctivae clear. NOSE: Normal no drainage NECK: Supple. No adenopathy, no masses. RESPIRATORY: Airway patent, respirations nonlabored. Clear to auscultation bilaterally, no rales, rhonchi, wheezing. CARDIOVASCULAR: Regular rate and rhythm without murmurs rubs or gallops. ABDOMINAL: Soft, nontender, nondistended, normal bowel sounds. No emesis in the emerge department. MUSCULOSKELETAL: Moves all extremities. Strength/ROM intact, No edema, No calf tenderness. NEURO: Alert. Cranial nerves intact, no focal neuro deficit SKIN: Warm, dry. Normal Color Course Course Emergency Course: UA was concerning for urinary tract infection. Blood cultures were ordered. Urine culture is pending. Patient was started on Rocephin. Family states that the patient did receive her first dose of Trulicity yesterday and had a second dose today. They state that the emesis today was after her dose of Trulicity. Case was discussed with the hospitalist and patient was accepted for admission for urinary tract infection. Patient was stable at time of admission. Vital Signs Vital signs: Vital Signs Temperature 97.8 F 08/18/21 23:27 Pulse Rate 79 08/18/21 23:27 Respiratory Rate 17 08/18/21 23:27 Blood Pressure 146/86 H 08/18/21 23:27 Pulse Oximetry 100 08/18/21 23:27 Temperature 98.0 F 08/19/21 03:27 Pulse Rate 83 08/19/21 03:2
[2021-08-18 23:43] VITALS: PULSE 83; RESP 18; O2SAT 100
[2021-08-18 23:45] VITALS: PULSE 82; RESP 17
--- NOTE | 2021-08-18 23:58 | PC.NURSE ---
Patient son arrives at bedside. Contacted facility, spoke an agency nurse who is unsure of why patient was sent out other than nausea. Per son, patient was recently started on trulicity and started to have nausea and vomiting after her first dose on thursday, and she received another dose today which caused her to vomit again. Unable to speak with the nurse caring for patient at [facility]. ERP notified.
[2021-08-19] VITALS (15 sets, daily range): BP systolic 135–158; BP diastolic 64–86; PULSE 65–87; RESP 13–20; TEMP 36–36.7; O2SAT 97–100; BMI 11.0
[2021-08-19 00:19] LABS: Add Urine Microscopic? YES; Appearance Urine Turbid (Clear); Bacteria Urine 4+ /hpf; Bilirubin Urine Negative (Negative); Blood Urine 1+ (Negative); Color Urine Yellow (Yellow); Glucose Urine UA 3+ mg/dL (Negative); Ketones Urine Trace mg/dL (Negative); Leukocyte Esterase Ur 2+ LEU/UL (Negative); Nitrate Urine Negative (Negative); Protein Urine 2+ mg/dL (Negative); RBC Urine 21-50 /hpf (0-2); Specific Grav Ur 1.026 (1.001-1.035); Urobilinogen Urine Negative mg/dL (<2.0); WBC Clumps Urine Present /HPF; WBC Urine >75 /hpf
[2021-08-19 00:38] LABS: Basophils Absolute Auto 0.1 K/mm3 (0.0-0.1); Basophils Percent Auto 0.5 % (0.2-1.2); Eosinophils Absolute Auto 0.1 K/mm3 (0-0.3); Eosinophils Percent Auto 0.7 % (0-4.4); Immature Granulocyte Absolute 0.06 K/mm3 (0.00-0.031); Immature Granulocyte Percent A 0.5 % (0-0.5); Lymphocytes Absolute Auto 2.57 K/mm3 (0.9-3.2); Lymphocytes Percent Auto 23.5 % (18.3-44.2); Mean Corpuscular HGB Conc 31.9 g/dl (32-36); Mean Corpuscular Hemoglobin 28.4 pg (26-34); Mean Platelet Volume 9.3 fl (7.4-10.4); Monocytes Absolute Auto 1.1 K/mm3 (0.1-0.6); Monocytes Percent Auto 9.7 % (2.6-8.5); Neutrophils Absolute Auto 7.1 K/mm3 (1.3-6.7); Neutrophils Percent Auto 65.1 % (45.5-73.1); Platelet Count Result 339 k/mm3 (150-375); Red Blood Count 5.28 M/mm3 (4.2-5.4); Red Cell Distribution Width 14.6 % (11.5-14.5); White Blood Count 10.9 K/mm3 (4.5-10.0)
[2021-08-19 00:45] LABS: Alanine Aminotransferase 22 U/L (4-35); Albumin Level 4.4 g/dL (3.5-5.1); Alkaline Phosphatase 125 U/L (38-126); Anion Gap 9 mmol/L (8-16); Aspartate Amino Transferase 31 U/L (14-36); Bilirubin,Total 1.4 mg/dL (0.2-1.3); Blood Urea Nitrogen 26 mg/dL (7-17); Calcium 9.4 mg/dL (8.4-10.2); Carbon Dioxide 27 mmol/L (22-30); Chloride 98 mmol/L (98-107); Estimated Glomerular Filt Rate 60; Glucose 219 mg/dL (65-110); Lactic Acid Reflex 2.6 mmol/L (0.7-2.1); Lipase 179 U/L (23-300); Potassium 4.3 mmol/L (3.4-5.0); Sodium 134 mmol/L (137-145)
--- NOTE | 2021-08-19 01:52 | PM.IMHP ---
H&P: HPI History of Present Illness Date/Time: 08/19/21 01:52 Chief Complaint: Nausea and vomiting. Narrative: This is a 80-year-old female with past medical history significant for Alzheimer's dementia, patient is currently residing at assisted living facility, type 2 diabetes mellitus, recurrent urinary tract infection, hypertension. Patient was brought to the emergency room for evaluation of due to a staph concerns after the patient has been having nausea and vomiting. Most of the history has been obtained from son who is at bedside as patient has dementia and history taking is limited by this. Preliminary workup was significant for urinalysis with clump wbc's present, bilirubin of 1.4 . Decision has been made to admit the patient for further evaluation management and treatment. Review of Systems Review of Systems: ROS unobtainable: Yes unobtainable due to medical condition (Advanced dementia) PMF Past Medical History Medical History (Updated 08/19/21 @ 03:54 by Nahum Ochoa MD) Cardiac defibrillator in place Diabetes HTN (hypertension) Hyperlipidemia Meningioma rt parietal Pacemaker Surgical History Surgical History History of lumpectomy of left breast History of right knee joint replacement Family History Family History Unknown Unknown family medical history Social History Social History Social History: The patient lives with her family. She is listed as a full code. The patient is listed as being . She is listed as being retired as well. Her son Phill is listed as the personal banking advisor Code status full code Smoking status: Never smoker Alcohol intake: never Substance use: never Spiritual care concerns: No Meds Home Medications and Allergies Home Medications Medication Instructions Recorded Confirmed Type Myrbetriq 50 mg PO DAILY 08/03/19 04/20/21 History glimepiride 6 mg PO DAILY 08/03/19 04/20/21 History metformin 1,000 mg PO BID 08/03/19 04/20/21 History aspirin [Enteric Coated Aspirin] 81 mg PO DAILY 04/20/21 04/20/21 History atorvastatin 20 mg PO HS 04/20/21 04/20/21 History lisinopril 10 mg PO QAM #30 tablet 04/24/21 Rx metoprolol tartrate 50 mg PO Q12HR #30 tablet 04/24/21 Rx donepezil 5 mg PO HS 08/18/21 History ergocalciferol (vitamin D2) 1,250 mcg PO WEEKLY 08/18/21 History [Vitamin D2] dulaglutide [Trulicity] mg SUBCUT 08/19/21 History Allergies Allergy/AdvReac Type Severity Reaction Status Date / Time No Known Allergies Allergy Verified 08/18/21 23:37 Vital Signs Vital Signs - 24 hr 08/18/21 23:27 08/18/21 23:43 08/18/21 23:45 Temperature 97.8 F Pulse Rate 79 83 82 Respiratory Rate 17 18 17 Blood Pressure 146/86 H Pulse Oximetry 100 100 08/19/21 00:00 08/19/21 00:01 08/19/21 00:15 Temperature Pulse Rate 83 83 80 Respiratory Rate 16 13 15 Blood Pressure 135/77 Pulse Oximetry 100 99 99 08/19/21 00:30 08/19/21 00:31 08/19/21 00:48 Temperature Pulse Rate 80 80 87 Respiratory Rate 14 16 14 Blood Pressure 140/86 Pulse Oximetry 100 08/19/21 01:10 08/19/21 01:15 Temperature Pulse Rate 80 84 Respiratory Rate 14 15 Blood Pressure Pulse Oximetry 97 Exam Narrative: Patient is laying extraction. Const: General: cooperative, comfortable, no acute distress, well developed, alert and awake Nutritional Appearance: average body habitus Orientation/consciousness: oriented to person and oriented to place HENMT: Head: normal to inspection, normocephalic and atraumatic Ears: hearing grossly normal bilaterally General nose exam: Normal external nose present Face and sinus: normal facial exam Mouth: Yes dry mucous membranes Eyes: General: appearance normal, both eyes and all related structures Alignment and Position: alignment normal Sclera: sclera
[2021-08-19 03:09] LABS: Reflex Lactic Acid Yes or No Add Lactic
--- NOTE | 2021-08-19 03:43 | ADMGEN ---
This patient, Angelica Kim, was admitted to 3 Med Surg Room 317-01. Patient/family oriented to hospital policies and general routines including ID bracelet, bed and alarms, visiting hours, pain management, procedures, bathroom and other care routines, personal items, smoking policy, room service/diet, and visiting hours. Information on how to activate the Rapid Response Team has been discussed. Patient/Family are encouraged to report perceived risks to care and to ask questions if they do not understand what they are told or what they should do.
[2021-08-19 04:35] LABS: Lactic Acid 1.4 mmol/L (0.7-2.1)
[2021-08-19 08:23] LABS: Glucose Point of Care 131 mg/dl (65-105)
[2021-08-19] MEDS: ASPIRIN 81 MG ENTERIC TABLET PO (10:09)
[2021-08-19] MEDS: METOPROLOL TARTRATE 50 MG TAB PO ×2 (10:09→21:33)
[2021-08-19 11:56] LABS: Glucose Point of Care 181 mg/dl (65-105)
--- NOTE | 2021-08-19 12:04 | PM.IMPN ---
Progress Note: A&P Assessment and Plan (1) Acute UTI: Code(s): N39.0 - Urinary tract infection, site not specified Status: Acute Assessment and Plan: - Continue Rocephin 1 gram IVP daily. - Blood and urine Cultures in progress (2) Nausea and vomiting: Qualifiers: Vomiting type: bilious vomiting Qualified Code(s): R11.14 - Bilious vomiting Code(s): R11.2 - Nausea with vomiting, unspecified Status: Acute Assessment and Plan: - Clear liquid diet and advanced as tolerated - Anti-emetics as needed. - Etiology uncertain. Consider causation as UTI, but pt also has Hyperbilirubinemia, so differential includes Choledocholithiasis, Cholecystitis, Bowel obstruction, or Enteritis. - Consider CT of abdomen and pelvis if continues. (3) Alzheimer's dementia: Qualifiers: Alzheimer's disease onset: unspecified onset Dementia behavioral disturbance: without behavioral disturbance Qualified Code(s): G30.9 - Alzheimer's disease, unspecified; F02.80 - Dementia in other diseases classified elsewhere without behavioral disturbance Code(s): G30.9 - Alzheimer's disease, unspecified; F02.80 - Dementia in other diseases classified elsewhere without behavioral disturbance Status: Acute Assessment and Plan: - Continue donepezil (4) Cardiac defibrillator in place: Code(s): Z95.810 - Presence of automatic (implantable) cardiac defibrillator Status: Acute Assessment and Plan: - Continue to monitor (5) HTN (hypertension): Qualifiers: Hypertension type: unspecified Qualified Code(s): I10 - Essential (primary) hypertension Code(s): I10 - Essential (primary) hypertension Status: Chronic Assessment and Plan: - Restart home meds as needed - Stable, continue to monitor. (6) Diabetes: Qualifiers: Diabetes mellitus type: type 2 Diabetes mellitus tank terminal gauger insulin use: without tank terminal gauger use Diabetes mellitus complication status: without complication Qualified Code(s): E11.9 - Type 2 diabetes mellitus without complications Code(s): E11.9 - Type 2 diabetes mellitus without complications Status: Chronic Assessment and Plan: - Holding Trulicity - Holding metformin - Holding glimepiride - Insulin sliding scale as needed - Accu-Cheks AC and HS - Initiate Hypoglycemic Protocol. Subjective Date/time seen: 08/19/21 0830 This pt. was examined at the bedside in interval assessment. She has a history of dementia and does not answer questions correctly except rarely. She resides at a residential and was brought to the ER last evening with complaints of her having N/V of a large amount of Green, Bilious appearing vomitus. On arrival to ER, she was found to have a UTI and was started on Rocephin. The rest of her initial workup was unremarkable with exception of her having some noted elevation to her Bilirubin at 1.4. Blood cultures and Urine cultures are pending. Upon my entry into the room, she appears comfortable without any signs of distress and did not reflect any with palpation of her abdomen. US limited is ordered at this time for appearance of the gall bladder, liver, and associated biliary ducts. Review of Systems Review of Systems: ROS unobtainable: Yes unobtainable due to mental status (Advanced dementia) Exam Const: General: comfortable and no acute distress HENMT: Mouth: Yes moist mucous membranes Eyes: Sclera: sclerae normal Neck: Neck: supple and no JVD Resp: Effort & Inspection: normal respiratory effort Auscultation: clear to auscultation bilaterally Cardio: Rate: regular rate Rhythm: regular rhythm GI: GI Palp: Yes Soft to palpation, No Tenderness to palpation present (GI) and No Guarding due to palpation present (GI) Auscultation: normal bowel sounds Skin: General skin exam: normal color and no rashes or lesions noted Neuro: Cognition (Neuro): abnormal cognition (Pt with
[2021-08-19 16:21] LABS: Glucose Point of Care 140 mg/dl (65-105)
[2021-08-19] MEDS: INSULIN ASPART (*BKC) 100 UNITS/ML SUB-Q (17:15)
[2021-08-19 20:34] LABS: Glucose Point of Care 102 mg/dl (65-105)
[2021-08-19] MEDS: ATORVASTATIN 20 MG TABLET PO (21:33)
[2021-08-19] MEDS: DONEPEZIL HCL 5 MG TABLET PO (21:33)
[2021-08-19 22:49] LABS: SARS-CoV-2 RNA PCR Negative
[2021-08-20] VITALS (9 sets, daily range): BP systolic 114–133; BP diastolic 57–69; PULSE 70–86; RESP 16–19; TEMP 36–36.4; O2SAT 97–98
[2021-08-20 06:25] LABS: Basophils Absolute Auto 0.1 K/mm3 (0.0-0.1); Basophils Percent Auto 0.6 % (0.2-1.2); Eosinophils Absolute Auto 0.2 K/mm3 (0-0.3); Eosinophils Percent Auto 1.8 % (0-4.4); Hematocrit 41.8 % (37.0-47.0); Hemoglobin 13.3 g/dL (12.0-15.0); Immature Granulocyte Absolute 0.05 K/mm3 (0.00-0.031); Immature Granulocyte Percent A 0.6 % (0-0.5); Lymphocytes Absolute Auto 1.91 K/mm3 (0.9-3.2); Lymphocytes Percent Auto 21.2 % (18.3-44.2); Mean Corpuscular HGB Conc 31.8 g/dl (32-36); Mean Corpuscular Hemoglobin 28.4 pg (26-34); Mean Corpuscular Volume 89.3 fl (80-100); Mean Platelet Volume 8.8 fl (7.4-10.4); Monocytes Absolute Auto 1.1 K/mm3 (0.1-0.6); Monocytes Percent Auto 12.2 % (2.6-8.5); Neutrophils Absolute Auto 5.8 K/mm3 (1.3-6.7); Neutrophils Percent Auto 63.6 % (45.5-73.1); Platelet Count Result 279 k/mm3 (150-375); Red Blood Count 4.68 M/mm3 (4.2-5.4); Red Cell Distribution Width 14.6 % (11.5-14.5)
[2021-08-20 06:39] LABS: Alanine Aminotransferase 20 U/L (4-35); Albumin Level 3.6 g/dL (3.5-5.1); Alkaline Phosphatase 97 U/L (38-126); Anion Gap 7 mmol/L (8-16); Aspartate Amino Transferase 28 U/L (14-36); Bilirubin,Total 1.3 mg/dL (0.2-1.3); Blood Urea Nitrogen 15 mg/dL (7-17); Calcium 8.7 mg/dL (8.4-10.2); Carbon Dioxide 26 mmol/L (22-30); Chloride 100 mmol/L (98-107); Estimated Glomerular Filt Rate 60; Glucose 122 mg/dL (65-110); Potassium 3.8 mmol/L (3.4-5.0); Sodium 133 mmol/L (137-145)
[2021-08-20 07:51] LABS: Glucose Point of Care 135 mg/dl (65-105)
[2021-08-20] MEDS: METOPROLOL TARTRATE 50 MG TAB PO ×2 (08:04→22:23)
[2021-08-20] MEDS: ASPIRIN 81 MG ENTERIC TABLET PO (08:04)
--- NOTE | 2021-08-20 09:20 | PC.NURSE ---
Npo status continued per [facility] provider, gi consulted r/t abnormal ct abd results this morning.
--- NOTE | 2021-08-20 10:51 | PC.NURSE ---
[facility] final report resulted reported to provider gerard Jiménez NNO.
[2021-08-20 11:42] LABS: Glucose Point of Care 143 mg/dl (65-105)
--- NOTE | 2021-08-20 12:55 | PM.IMPN ---
Progress Note: A&P Assessment and Plan (1) Acute UTI: Code(s): N39.0 - Urinary tract infection, site not specified Status: Acute Assessment and Plan: - Urine culture resulted in yeast only. - Discontinue Rocephin at this time. - Start Diflucan 100 mg IVPB daily for 5 days. - Blood cultures negative to date. (2) Nausea and vomiting: Qualifiers: Vomiting type: bilious vomiting Qualified Code(s): R11.14 - Bilious vomiting Code(s): R11.2 - Nausea with vomiting, unspecified Status: Acute Assessment and Plan: - Trial solid foods with diabetic diet. - Anti-emetics as needed. - No further N/V appreciated. The pt. has had an US due to her elevated LFT's and Bilirubin (all of which have now returned to normal) and US of RUQ shows Cholelithiasis without evidence of Cholecystitis or Choledocholithiasis. - Consider CT of abdomen and pelvis if nausea resumes. (3) Alzheimer's dementia: Qualifiers: Alzheimer's disease onset: unspecified onset Dementia behavioral disturbance: without behavioral disturbance Qualified Code(s): G30.9 - Alzheimer's disease, unspecified; F02.80 - Dementia in other diseases classified elsewhere without behavioral disturbance Code(s): G30.9 - Alzheimer's disease, unspecified; F02.80 - Dementia in other diseases classified elsewhere without behavioral disturbance Status: Acute Assessment and Plan: - Continue donepezil (4) Cardiac defibrillator in place: Code(s): Z95.810 - Presence of automatic (implantable) cardiac defibrillator Status: Acute Assessment and Plan: - Continue to monitor (5) HTN (hypertension): Qualifiers: Hypertension type: unspecified Qualified Code(s): I10 - Essential (primary) hypertension Code(s): I10 - Essential (primary) hypertension Status: Chronic Assessment and Plan: - Restart home meds as needed - Stable, continue to monitor. (6) Diabetes: Qualifiers: Diabetes mellitus type: type 2 Diabetes mellitus detention insulin use: without detention use Diabetes mellitus complication status: without complication Qualified Code(s): E11.9 - Type 2 diabetes mellitus without complications Code(s): E11.9 - Type 2 diabetes mellitus without complications Status: Chronic Assessment and Plan: - Holding Trulicity - Holding metformin - Holding glimepiride - Insulin sliding scale as needed - Accu-Cheks AC and HS - Initiate Hypoglycemic Protocol. Time Spent With Patient Time with patient: 15 - 25 minutes Subjective Date/time seen: 08/20/21 0900 This pt. was examined at the bedside in interval assessment. She remains pleasantly confused, although does answer that she has no complaints of pain, dyspnea and no belly pain. Her urine culture resulted and was positive for Yeast. Diflucan ordered IVPB as we are still awaiting placement. She does not appear to be in any distress. Review of Systems Review of Systems: A full 12 point ROS was performed and is otherwise negative with exception of what is noted in HPI. All systems reviewed & are unremarkable except as noted in HPI and below Exam Const: General: no acute distress HENMT: Mouth: Yes moist mucous membranes Eyes: Sclera: sclerae normal Neck: Neck: supple and no JVD Resp: Effort & Inspection: normal respiratory effort Auscultation: clear to auscultation bilaterally Cardio: Rate: regular rate Rhythm: regular rhythm Heart sounds: no murmurs GI: GI Palp: Yes Soft to palpation and No Tenderness to palpation present (GI) Auscultation: normal bowel sounds Skin: General skin exam: normal color and no rashes or lesions noted Neuro: Cognition (Neuro): abnormal cognition (Confused at times. ) Speech: normal speech Extrem: General: normal to inspection Right upper extremity: normal to inspection Left upper extremity: normal to inspection Right lower extremity: normal to inspec
[2021-08-20] MEDS: INSULIN ASPART (*BKC) 100 UNITS/ML SUB-Q ×3 (13:27→22:24)
--- NOTE | 2021-08-20 15:26 | PC.NURSE ---
Pt awaiting placement for discharge, [facility] will not take back per provider report.
[2021-08-20 16:25] LABS: Glucose Point of Care 266 mg/dl (65-105)
[2021-08-20 20:28] LABS: Glucose Point of Care 279 mg/dl (65-105)
[2021-08-20] MEDS: DONEPEZIL HCL 5 MG TABLET PO (22:23)
[2021-08-20] MEDS: ATORVASTATIN 20 MG TABLET PO (22:23)
[2021-08-21 06:00] VITALS: BP 130/66; PULSE 90; RESP 18; TEMP 36.7; O2SAT 97
[2021-08-21 06:32] LABS: Basophils Absolute Auto 0.1 K/mm3 (0.0-0.1); Basophils Percent Auto 0.6 % (0.2-1.2); Eosinophils Absolute Auto 0.1 K/mm3 (0-0.3); Eosinophils Percent Auto 1.1 % (0-4.4); Hematocrit 40.5 % (37.0-47.0); Hemoglobin 13.1 g/dL (12.0-15.0); Immature Granulocyte Absolute 0.05 K/mm3 (0.00-0.031); Immature Granulocyte Percent A 0.6 % (0-0.5); Lymphocytes Percent Auto 23.6 % (18.3-44.2); Mean Corpuscular HGB Conc 32.3 g/dl (32-36); Mean Corpuscular Hemoglobin 28.4 pg (26-34); Mean Corpuscular Volume 87.9 fl (80-100); Mean Platelet Volume 9.1 fl (7.4-10.4); Monocytes Percent Auto 11.7 % (2.6-8.5); Neutrophils Absolute Auto 5.3 K/mm3 (1.3-6.7); Neutrophils Percent Auto 62.4 % (45.5-73.1); Platelet Count Result 304 k/mm3 (150-375); Red Blood Count 4.61 M/mm3 (4.2-5.4); Red Cell Distribution Width 14.7 % (11.5-14.5); White Blood Count 8.5 K/mm3 (4.5-10.0)
[2021-08-21 06:51] LABS: Alanine Aminotransferase 20 U/L (4-35); Albumin Level 3.5 g/dL (3.5-5.1); Alkaline Phosphatase 100 U/L (38-126); Anion Gap 9 mmol/L (8-16); Aspartate Amino Transferase 24 U/L (14-36); Bilirubin,Total 1.1 mg/dL (0.2-1.3); Blood Urea Nitrogen 22 mg/dL (7-17); Calcium 8.6 mg/dL (8.4-10.2); Carbon Dioxide 22 mmol/L (22-30); Chloride 102 mmol/L (98-107); Estimated Glomerular Filt Rate 60; Glucose 203 mg/dL (65-110); Potassium 3.8 mmol/L (3.4-5.0); Sodium 133 mmol/L (137-145)
[2021-08-21 07:58] LABS: Glucose Point of Care 200 mg/dl (65-105)
[2021-08-21 08:00] VITALS: PULSE 82; RESP 20; O2SAT 96
[2021-08-21 08:19] VITALS: O2SAT 97
[2021-08-21 08:21] VITALS: PULSE 84
[2021-08-21] MEDS: INSULIN ASPART (*BKC) 100 UNITS/ML SUB-Q ×3 (08:21→17:09)
[2021-08-21] MEDS: FLUCONAZOLE 100 MG/NACL 50 ML 100 MG/50 ML BTL 50 MG IVPB (08:21)
[2021-08-21] MEDS: ASPIRIN 81 MG ENTERIC TABLET PO (08:21)
[2021-08-21] MEDS: METOPROLOL TARTRATE 50 MG TAB PO (08:21)
[2021-08-21 11:25] LABS: Glucose Point of Care 201 mg/dl (65-105)
--- NOTE | 2021-08-21 13:37 | PM.DS ---
DS: Admitting Diagnosis Discharge Date 08/21/2021 Admitting Diagnosis 1) Acute UTI 2) Nausea and Vomiting 3) Alzheimer's dementia 4) Cardiac defibrillator in place 5) HTN 6) Diabetes DS: Discharge Diagnosis Discharge Diagnosis (1) Acute UTI: Code(s): N39.0 - Urinary tract infection, site not specified Status: Acute Assessment and Plan: - Urine culture resulted in yeast only. - Discontinue Rocephin at this time. - Start Diflucan 100 mg IVPB daily for 5 days. - Blood cultures negative to date. (2) Nausea and vomiting: Qualifiers: Vomiting type: bilious vomiting Qualified Code(s): R11.14 - Bilious vomiting Code(s): R11.2 - Nausea with vomiting, unspecified Status: Acute Assessment and Plan: - Trial solid foods with diabetic diet. - Anti-emetics as needed. - No further N/V appreciated. The pt. has had an US due to her elevated LFT's and Bilirubin (all of which have now returned to normal) and US of RUQ shows Cholelithiasis without evidence of Cholecystitis or Choledocholithiasis. - Consider CT of abdomen and pelvis if nausea resumes. - Pt. has been tolerating solid foods without difficulty. (3) Alzheimer's dementia: Qualifiers: Alzheimer's disease onset: unspecified onset Dementia behavioral disturbance: without behavioral disturbance Qualified Code(s): G30.9 - Alzheimer's disease, unspecified; F02.80 - Dementia in other diseases classified elsewhere without behavioral disturbance Code(s): G30.9 - Alzheimer's disease, unspecified; F02.80 - Dementia in other diseases classified elsewhere without behavioral disturbance Status: Acute Assessment and Plan: - Continue donepezil (4) Cardiac defibrillator in place: Code(s): Z95.810 - Presence of automatic (implantable) cardiac defibrillator Status: Acute Assessment and Plan: - Continue to monitor (5) HTN (hypertension): Qualifiers: Hypertension type: unspecified Qualified Code(s): I10 - Essential (primary) hypertension Code(s): I10 - Essential (primary) hypertension Status: Chronic Assessment and Plan: - Restart home meds as needed - Stable, continue to monitor. (6) Diabetes: Qualifiers: Diabetes mellitus type: type 2 Diabetes mellitus skilled nursing insulin use: without termite inspector use Diabetes mellitus complication status: without complication Qualified Code(s): E11.9 - Type 2 diabetes mellitus without complications Code(s): E11.9 - Type 2 diabetes mellitus without complications Status: Chronic Assessment and Plan: - Holding Trulicity - Holding metformin - Holding glimepiride - Insulin sliding scale as needed - Accu-Cheks AC and HS - Initiate Hypoglycemic Protocol. DS: Summary Hospital Course Reason for hospitalization: Nausea and Vomiting Hospital Course: This is a 80-year-old female with past medical history significant for Alzheimer's dementia, who has been residing at an assisted living facility, with PMH of Dementia, type 2 diabetes mellitus, recurrent urinary tract infection, hypertension. Patient was brought to the emergency room for evaluation of N/V. She was evaluated in the ER and it was found that the patient had an otherwise negative CT of abdomen and pelvis, but she did have an elevated bilirubin initially. She had RUQ US and it showed cholelithiasis without evidence of cholecystitis. In addition, she had a UA that was suspicious for UTI. The culture eventually grew out yeast and she was started on Diflucan for 5 days. Today is day #2 dose. Blood cultures remain negative on day #2. Her Assisted living facility voiced concerns that she was requiring more care than what they normally give and suggest that the pt. have placement. She has been placed and is going to the [facility] with three additional days of oral Diflucan to be given. She has remained stable and without complaint whil
[2021-08-21 14:00] VITALS: BP 118/62; PULSE 82; RESP 20; TEMP 36.7; O2SAT 96
--- NOTE | 2021-08-21 14:54 | PC.NURSE ---
Report given to nurse at [facility], phylicia test pending. Pt to transport via ambulance. Iliana DIMAS.
[2021-08-21 15:04] LABS: EDCOVIDSCREEN Negative (Negative)
[2021-08-21 16:38] LABS: Glucose Point of Care 167 mg/dl (65-105)
== END 2021-08-21 17:35 | DRG 690 ==
LOC: ANHED 08-19 02:27 → ANH3MEDSUR 08-19 03:08
PROVIDERS: Admitting Provider Internal Medicine; Emergency Provider Emergency Medicine; PCP Internal Medicine; Visit Provider Nurse Practitioner Adult Health
DX: N39.0 Urinary tract infection, site not specified (principal); Z20.822 Contact with and (suspected) exposure to COVID-19; R11.2 Nausea with vomiting, unspecified; G30.9 Alzheimer's disease, unspecified; Z95.810 Presence of automatic (implantable) cardiac defibrillator; E80.6 Other disorders of bilirubin metabolism; F02.80 Dementia in other diseases classified elsewhere, unspecified severity, without behavioral disturbance, psychotic disturbance, mood disturbance, and anxiety; E11.9 Type 2 diabetes mellitus without complications; E78.5 Hyperlipidemia, unspecified; Z79.899 Other long term (current) drug therapy; Z79.84 Long term (current) use of oral hypoglycemic drugs; Z79.82 Long term (current) use of aspirin
CPT/HCPCS: 36415; 51701; 76705; 80053; 81001; 82948; 83605; 83690; 85025; 87040; 87086; 87426; 96365; 96366; 97110; 97161; 97165; 97530; 99285; A9270; C9803; G0378; J0696; J1450; J1815; U0003; U0005

== ENCOUNTER 2022-01-14 14:16 | Inpatient (IN) | payer MEDICARE, SELFPAY ==
[2022-01-14] VITALS (10 sets, daily range): BP systolic 108–143; BP diastolic 52–77; PULSE 74–111; RESP 18–24; TEMP 36.6–36.9; O2SAT 97–99
--- NOTE | ~2022-01-14 | CT_ITS ---
EXAMINATION: CT abdomen pelvis w con INDICATION: Vomiting, lethargy, fever TECHNIQUE: Computed tomographic images of the abdomen and pelvis were obtained after the administrati on of 100 cc of Omnipaque 350 intravenous contrast. The dose-length product (DLP) was 694.02 mGy-cm. Automated exposure control and iterative reconstruction technique were employed. COMPARISON: 03/29/2014 FINDINGS: Minimal dependent atelectasis is present in the lung bases. Cardiomegaly is noted. There is a partially calcified left breast implant. There is a sliding hiatal hernia. A stone is present in t he nondistended gallbladder. The liver, spleen, and adrenal glands are normal. There is a 6 mm cystic lesion in the body of the pancreas. There is calcified atherosclerosis of the aorta and many of the other arteries. There is mild wall thickening of the urinary bladder. No pathologically enlarged abdo columba or pelvic lymph nodes are identified. There is no free intraperitoneal gas or evidence of bowel obstruction. There is a moderate volume of stool in the rectum. Colonic diverticulosis is noted. The re is wall thickening and pericolic inflammatory change near the mid/distal descending colon. There i s severe lumbar spondylosis. IMPRESSION: 1. Mild wall thickening of the urinary bladder, consistent with cystitis. 2. Diverticulosis and inflammatory change adjacent to the mid descending colon, consistent with uncom plicated diverticulitis. 3. 6 mm cystic lesion in the body of the pancreas. The differential diagnosis includes pseudocyst, in traductal papillary mucinous neoplasm (IPMN), mucinous cystic neoplasm (MCN), and the less common ser ous cystadenoma and neuroendocrine tumor. Correlate for history of pancreatitis. Follow-up pancreas protocol CT or MRI in two years is recommended. 4. Cholelithiasis without evidence of cholecystitis. Reviewed, dictated and finalized at location A. IMPRESSION: 1. Mild wall thickening of the urinary bladder, consistent with cystitis. 2. Diverticulosis and inflammatory change adjacent to the mid descending colon, consistent with uncomplicated diverticulitis. 3. 6 mm cystic lesion in the body of the pancreas. The differential diagnosis i ncludes pseudocyst, intraductal papillary mucinous neoplasm (IPMN), mucinous cy stic neoplasm (MCN), and the less common serous cystadenoma and neuroendocrine tumor. Correlate for history of pancreatitis. Follow-up pancreas protocol CT or MRI in two years is recommended. 4. Cholelithiasis without evidence of cholecystitis.
--- NOTE | ~2022-01-14 | CT_ITS ---
EXAMINATION: CT brain wo con DATE: 01/14/2022 15:26 INDICATION: Altered mental status. TECHNIQUE: Computed tomography (CT) of the head was performed without intravenous contrast. The mA wa s adjusted according to patient size. Iterative reconstruction technique was employed. The dose-lengt h product was 605.33 mGy-cm. COMPARISON: Head CT 04/20/2021 FINDINGS: In the right frontoparietal region abutting the falx, there is a 6.2 x 4.4 x 5.1 cm calcifi ed extra-axial mass, consistent with a meningioma. There are scattered areas of low attenuation in th e cerebral white matter. There is no acute ischemic infarct or intracranial hemorrhage. There is mass effect on body of right lateral ventricle. There is 2 mm leftward midline shift. There is mild mucos al thickening in the paranasal sinuses. The orbits are normal. The mastoid air cells are normal. IMPRESSION: 1. Stable 6.2 cm calcified extra-axial mass in the right frontoparietal region, consistent with a men ingioma. 2. Stable mild nonspecific cerebral white matter disease, which likely represents chronic small vesse l ischemic disease. Reviewed, dictated and finalized at location A. IMPRESSION: 1. Stable 6.2 cm calcified extra-axial mass in the right frontoparietal region, consistent with a meningioma. 2. Stable mild nonspecific cerebral white matter disease, which likely represen ts chronic small vessel ischemic disease.
--- NOTE | ~2022-01-14 | XR_ITS ---
EXAMINATION: XR chest 1V portable DATE: 01/14/2022 15:26 INDICATION: Weakness. Transient alteration of awareness. TECHNIQUE: frontal view of the chest was obtained. COMPARISON: Chest radiograph dated 08/03/2019 FINDINGS: Mild biapical pleural-parenchymal scarring. No other airspace opacities, pulmonary edema, pleural eff usion or pneumothorax. The cardiomediastinal silhouette is normal. Three lead pacemaker/AICD seen wit h leads projecting over the expected locations of the right atrial appendage, apex of the right ventr icle and overlying the left ventricle likely having traversed the coronary sinus. Nonspecific curvili near calcification projecting over the left breast. Correlate with mammography. IMPRESSION: 1. No acute cardiopulmonary disease. Reviewed, dictated and finalized at location A.
--- NOTE | 2022-01-14 14:26 | ECG_ITS ---
Measurements Intervals [place] Rate: 79 P: 40 DE: 117 QRS: -49 QRSD: 114 T: 77 QT: 399 QTc: 457 Interpretive Statements ELECTRONIC VENTRICULAR PACEMAKER ATYPICAL ECG COMPARED TO ECG 04/20/2021 15:01:30 NO SIGNIFICANT CHANGES Electronically Signed On 01-14-2022 15:18:17 CDT by Justino Jalloh M.D.
[2022-01-14 14:48] LABS: Glucose Point of Care 214 mg/dl (65-105)
[2022-01-14 14:48] LABS: Basophils Absolute Auto 0.1 K/mm3 (0.0-0.1); Basophils Percent Auto 0.4 % (0.2-1.2); Eosinophils Percent Auto 0.1 % (0-4.4); Hematocrit 42.6 % (37.0-47.0); Hemoglobin 13.7 g/dL (12.0-15.0); Immature Granulocyte Absolute 0.11 K/mm3 (0.00-0.031); Immature Granulocyte Percent A 0.7 % (0-0.5); Lymphocytes Absolute Auto 1.75 K/mm3 (0.9-3.2); Lymphocytes Percent Auto 10.6 % (18.3-44.2); Mean Corpuscular HGB Conc 32.2 g/dl (32-36); Mean Corpuscular Hemoglobin 28.5 pg (26-34); Mean Corpuscular Volume 88.6 fl (80-100); Mean Platelet Volume 8.9 fl (7.4-10.4); Monocytes Absolute Auto 1.4 K/mm3 (0.1-0.6); Monocytes Percent Auto 8.7 % (2.6-8.5); Neutrophils Absolute Auto 13.1 K/mm3 (1.3-6.7); Neutrophils Percent Auto 79.5 % (45.5-73.1); Platelet Count Result 301 k/mm3 (150-375); Red Blood Count 4.81 M/mm3 (4.2-5.4); Red Cell Distribution Width 14.4 % (11.5-14.5); White Blood Count 16.5 K/mm3 (4.5-10.0)
--- NOTE | 2022-01-14 14:48 | PC.NURSE ---
Blood sugar was 214 at 1445
[2022-01-14 14:59] LABS: INR 1.1; Prothrombin Time 13.4 Seconds (11.1-14.7)
[2022-01-14 15:00] LABS: Partial Thromboplastin Time 34.3 SECONDS (22.3-36.8)
[2022-01-14 15:01] LABS: Alanine Aminotransferase 19 U/L (6-35); Albumin Level 3.6 g/dL (3.5-5.1); Alkaline Phosphatase 94 U/L (38-126); Anion Gap 13 mmol/L (8-16); Aspartate Amino Transferase 19 U/L (14-36); Bilirubin,Total 1.1 mg/dL (0.2-1.3); Blood Urea Nitrogen 18 mg/dL (7-17); Calcium 9.3 mg/dL (8.4-10.2); Carbon Dioxide 21 mmol/L (22-30); Chloride 96 mmol/L (98-107); Estimated CRCL calculation 39 ml/min; Estimated Glomerular Filt Rate 60; Glucose 201 mg/dL (65-110); Potassium 4.2 mmol/L (3.4-5.0); Sodium 130 mmol/L (137-145)
--- NOTE | 2022-01-14 15:01 | ED.AMS ---
HPI - Altered Mental Status General Chief Complaint: Altered Mental Status Stated Complaint: AMS Time Seen by Provider: 01/14/22 14:43 Source: patient, family, EMS, RN notes reviewed and old records reviewed Mode of arrival: EMS Limitations: clinical condition History of Present Illness HPI narrative: This is an 81 year old female who presents for evaluation of increased lethargy . Patient's son is at bedside and he noticed that patient appeared weaker on Thursday when he visited her. Patient has history of menigioma and left side weakness per her son. He states she has had UTIs in the past that her caused her similar symptoms. He was told today patient had emesis x 2 He reports she was last treated for UTI 1 month ago. He is not aware of any recent falls. Patient is oriented to person. Patient had temperature 99.5 F in the field. Related Data Home Medications Medication Instructions Recorded Confirmed glimepiride 2 mg tablet (Amaryl) 6 mg PO DAILY 08/03/19 01/14/22 metformin 500 mg tablet 1,000 mg PO BID 08/03/19 01/14/22 mirabegron 50 mg tablet,extended 50 mg PO DAILY 08/03/19 01/14/22 release 24 hr (Myrbetriq) aspirin 81 mg tablet,delayed 81 mg PO DAILY 04/20/21 01/14/22 release (Enteric Coated Aspirin) atorvastatin 20 mg tablet (Lipitor) 20 mg PO HS 04/20/21 01/14/22 donepezil 5 mg tablet (Aricept) 5 mg PO HS 08/18/21 01/14/22 ergocalciferol (vitamin D2) 1,250 1,250 mcg PO WEEKLY 08/18/21 01/14/22 mcg (50,000 unit) capsule (Vitamin D2) bupropion HCl 150 mg 24 hr tablet, 150 mg PO DAILY 01/14/22 01/14/22 extended release insulin glargine 100 unit/mL (3 10 unit subcut DAILY 01/14/22 01/14/22 mL) subcutaneous pen (Lantus Solostar U-100 Insulin) insulin glargine 100 unit/mL (3 10 unit subcut HS 01/14/22 01/14/22 mL) subcutaneous pen (Lantus Solostar U-100 Insulin) tizanidine 4 mg tablet 4 mg PO PRN muscle spasms 01/14/22 01/14/22 Allergies Allergy/AdvReac Type Severity Reaction Status Date / Time No Known Allergies Allergy Verified 01/14/22 17:54 Review of Systems Review of Systems: ROS unobtainable: Yes unobtainable due to mental status PMFSH Past Medical History Medical History (Updated 01/14/22 @ 22:15 by Viktoria Alarcon MD) Cardiac defibrillator in place Diabetes HTN (hypertension) Hyperlipidemia Meningioma rt parietal Pacemaker Surgical History Surgical History History of lumpectomy of left breast History of right knee joint replacement Family History Family History Unknown Unknown family medical history Social History Social History Social History: The patient lives with her family. She is listed as a full code. The patient is listed as being . She is listed as being retired as well. Her son Phill is listed as the contact center team lead Code status full code Smoking status: Never smoker Alcohol intake: never Substance use: never Substance use type: does not use Spiritual care concerns: No Exam Const: General: ill appearing acutely Limitations: altered mental status Other: oriented to person HENMT: Head: normal to inspection Mouth: Yes lip normal and Yes dry mucous membranes Eyes: Pupils: Equal, round and reactive pupils present EOM: EOMs intact bilaterally Chest: Chest palpation & inspection: normal inspection of the chest Resp: Effort & Inspection: normal respiratory effort Auscultation: clear to auscultation bilaterally Cardio: Rate: regular rate Rhythm: regular rhythm Heart sounds: no murmurs GI: GI Palp: Yes Soft to palpation, No Tenderness to palpation present (GI) and No Guarding due to palpation present (GI) Auscultation: normal bowel sounds Skin: General skin exam: normal color Rashes: no rashes Neuro: General: CN's II-XI intact bilaterally Other: bryce
[2022-01-14 15:14] LABS: Appearance Urine Cloudy (Clear); Bilirubin Urine Negative (Negative); Blood Urine 1+ (Negative); Color Urine Yellow (Yellow); Glucose Urine UA 2+ mg/dL (Negative); Ketones Urine Negative (Negative); Leukocyte Esterase Ur 1+ LEU/UL (Negative); Nitrate Urine Positive (Negative); Protein Urine 2+ mg/dL (Negative); Specific Grav Ur >= 1.030 (1.001-1.035); Urobilinogen Urine 0.2 mg/dL (<2.0)
[2022-01-14 15:30] LABS: Bacteria Urine 2+ /hpf; Mucus Urine Heavy /lpf; Squamous Epithelial Cell Urine Many /hpf (Few); WBC Clumps Urine Present /HPF; WBC Urine >75 /hpf
[2022-01-14 15:31] LABS: Add Urine Microscopic? YES
[2022-01-14 15:42] LABS: CRP 7.5 mg/dL (<1.0); Lipase 62 U/L (23-300); Magnesium 1.3 mg/dL (1.6-2.3)
[2022-01-14 15:43] LABS: Lactic Acid Reflex 4.3 mmol/L (0.7-2.0)
[2022-01-14 15:54] LABS: SARS-CoV-2 RNA PCR Negative
[2022-01-14] MEDS: SODIUM CHLORIDE 0.9% IV 1,000 ML 999 ML IV CONT ×2 (16:10→16:25)
[2022-01-14] MEDS: metroNIDAZOLE 500 MG/ISO 100ML 500 MG/100 ML BAG 100 MG IVPB ×2 (16:53→22:21)
[2022-01-14] MEDS: SODIUM CHLORIDE 0.9% IV 500 ML 999 ML IV CONT (17:08)
--- NOTE | 2022-01-14 17:55 | ADMGEN ---
This patient, Angelica Kim, was admitted to Medical Room 248-01. Patient/family oriented to hospital policies and general routines including ID bracelet, bed and alarms, visiting hours, pain management, procedures, bathroom and other care routines, personal items, smoking policy, room service/diet, and visiting hours. Information on how to activate the Rapid Response Team has been discussed. Patient/Family are encouraged to report perceived risks to care and to ask questions if they do not understand what they are told or what they should do.
[2022-01-14] MEDS: SODIUM CHLORIDE 0.9% IV 1,000 ML 125 ML IV CONT (18:04)
[2022-01-14 18:12] LABS: Reflex Lactic Acid Yes or No Add Lactic
[2022-01-14 22:50] LABS: Glucose Point of Care 217 mg/dl (65-105)
[2022-01-15] VITALS (11 sets, daily range): BP systolic 122–143; BP diastolic 52–76; PULSE 84–104; RESP 16–20; TEMP 36.5–37.1; O2SAT 96–98; BMI 26.8
--- NOTE | 2022-01-15 00:09 | PM.IMHP ---
H&P: HPI History of Present Illness Date/Time: 01/14/22 4830 Chief Complaint: altered mental status Narrative: this is a 81-year-old female patient who came to the emergency room with increased lethargy. The patient's son noticed that she was getting weaker on Thursday when he went to visitor patient has a history of meningioma and left-sided weakness. The patient has had urinary tract infections and have cause similar symptoms. The patient had an emesis x2 today. Patient was last treated for urinary tract infection 1 month ago. Patient's temperature was 99.5? in the field. The patient is only orientated to herself and is not able to answer questions. Her white count was noted to be 16.5. Sodium 130. Blood sugars were in the 200s. First lactic was 4.3 and is down to 2.0. magnesium 1.3. the patient was found to be positive for UTI. Patient was started on Rocephin. abdominal pelvis CT was read as the following 1. Mild wall thickening of the urinary bladder, consistent with cystitis. 2. Diverticulosis and inflammatory change adjacent to the mid descending colon, consistent with uncomplicated diverticulitis. 3. 6 mm cystic lesion in the body of the pancreas. The differential diagnosis includes pseudocyst, intraductal papillary mucinous neoplasm (IPMN), mucinous cystic neoplasm (MCN), and the less common serous cystadenoma and neuroendocrine tumor. Correlate for history of pancreatitis. Follow-up pancreas protocol CT or MRI in two years is recommended. 4. Cholelithiasis without evidence of cholecystitis. Flagyl was added to her antibiotics. Head CT was read as the following. Stable 6.2 cm calcified extra-axial mass in the right frontoparietal region, consistent with a meningioma. 2. Stable mild nonspecific cerebral white matter disease, which likely represents chronic small vessel ischemic disease. the patient is being admitted to inpatient services on the date of service of 01/14/2022 Review of Systems Review of Systems: the patient is not able to answer questions. She is lethargic. She is only orientated to herself. Information was obtained from records. [facility] Past Medical History Medical History (Updated 01/15/22 @ 00:29 by Nae Franco NP) Cardiac defibrillator in place Diabetes HTN (hypertension) Hyperlipidemia Meningioma rt parietal Pacemaker Surgical History Surgical History History of lumpectomy of left breast History of right knee joint replacement Family History Family History Unknown Unknown family medical history Social History Social History Social History: The patient lives with her family. She is listed as a full code. The patient is listed as being . She is listed as being retired as well. Her son Phill is listed as the general hardware salesperson Code status full code Smoking status: Never smoker Alcohol intake: never Substance use: never Substance use type: does not use Spiritual care concerns: No Meds Home Medications and Allergies Home Medications Medication Instructions Recorded Confirmed Type glimepiride 2 mg tablet (Amaryl) 6 mg PO DAILY 08/03/19 01/14/22 History metformin 500 mg tablet 1,000 mg PO BID 08/03/19 01/14/22 History mirabegron 50 mg tablet,extended 50 mg PO DAILY 08/03/19 01/14/22 History release 24 hr (Myrbetriq) aspirin 81 mg tablet,delayed 81 mg PO DAILY 04/20/21 01/14/22 History release (Enteric Coated Aspirin) atorvastatin 20 mg tablet (Lipitor) 20 mg PO HS 04/20/21 01/14/22 History lisinopril 10 mg tablet 10 mg PO QAM #30 tabs 04/24/21 01/14/22 Rx metoprolol tartrate 50 mg tablet 50 mg PO Q12HR #30 tabs 04/24/21 01/14/22 Rx donepezil 5 mg tablet (Aricept) 5 mg PO HS 08/18/21 01/14/22 History ergocalciferol (vitamin D2) 1,250 1,250 mcg
[2022-01-15] MEDS: MAGNESIUM SULF 2 GM/WATER 50ML 2 GM/50 ML BAG IVPB (02:19)
[2022-01-15] MEDS: SODIUM CHLORIDE 0.9% IV 1,000 ML 125 ML IV CONT ×2 (04:42→13:42)
[2022-01-15] MEDS: metroNIDAZOLE 500 MG/ISO 100ML 500 MG/100 ML BAG 100 MG IVPB ×3 (05:09→22:59)
[2022-01-15 06:03] LABS: Basophils Percent Auto 0.4 % (0.2-1.2); Eosinophils Percent Auto 0.1 % (0-4.4); Hematocrit 37.5 % (37.0-47.0); Hemoglobin 11.9 g/dL (12.0-15.0); Immature Granulocyte Absolute 0.06 K/mm3 (0.00-0.031); Immature Granulocyte Percent A 0.6 % (0-0.5); Lymphocytes Absolute Auto 0.79 K/mm3 (0.9-3.2); Lymphocytes Percent Auto 8.5 % (18.3-44.2); Mean Corpuscular HGB Conc 31.7 g/dl (32-36); Mean Corpuscular Hemoglobin 28.6 pg (26-34); Mean Corpuscular Volume 90.1 fl (80-100); Mean Platelet Volume 8.8 fl (7.4-10.4); Monocytes Percent Auto 10.5 % (2.6-8.5); Neutrophils Absolute Auto 7.5 K/mm3 (1.3-6.7); Neutrophils Percent Auto 79.9 % (45.5-73.1); Platelet Count Result 225 k/mm3 (150-375); Red Blood Count 4.16 M/mm3 (4.2-5.4); Red Cell Distribution Width 14.5 % (11.5-14.5); White Blood Count 9.3 K/mm3 (4.5-10.0)
[2022-01-15 06:11] LABS: Lactic Acid Reflex 1.8 mmol/L (0.7-2.0)
[2022-01-15 06:14] LABS: Alanine Aminotransferase 14 U/L (6-35); Albumin Level 3.1 g/dL (3.5-5.1); Alkaline Phosphatase 89 U/L (38-126); Anion Gap 9 mmol/L (8-16); Aspartate Amino Transferase 17 U/L (14-36); Bilirubin,Total 0.9 mg/dL (0.2-1.3); Blood Urea Nitrogen 14 mg/dL (7-17); Calcium 8.6 mg/dL (8.4-10.2); Carbon Dioxide 22 mmol/L (22-30); Chloride 101 mmol/L (98-107); Estimated CRCL calculation 44 ml/min; Estimated Glomerular Filt Rate > 60; Glucose 160 mg/dL (65-110); Magnesium 1.8 mg/dL (1.6-2.3); Potassium 3.6 mmol/L (3.4-5.0); Sodium 132 mmol/L (137-145)
[2022-01-15 07:33] LABS: Hemoglobin A1C 7.3 % (<5.7)
[2022-01-15 08:19] LABS: Thyroid Stimulating Hormone Reflex 0.378 uIU/mL (0.465-4.68)
[2022-01-15 08:52] LABS: Glucose Point of Care 162 mg/dl (65-105)
[2022-01-15] MEDS: ASPIRIN 81 MG ENTERIC TABLET PO (09:08)
[2022-01-15] MEDS: METOPROLOL TARTRATE 50 MG TAB PO ×2 (09:08→21:24)
[2022-01-15] MEDS: lisinopriL 10 MG TABLET PO (09:09)
[2022-01-15] MEDS: MIRABEGRON 50 MG ER TABLET PO (09:09)
[2022-01-15] MEDS: GLIMEPIRIDE 2 MG TABLET 6 MG PO (09:09)
[2022-01-15] MEDS: buPROPion HCL XL (24 HR) 150 MG TABCR PO (09:09)
[2022-01-15] MEDS: INSULIN GLARGINE (*BKC) 100 UNITS/ML 10 UNITS SUB-Q ×2 (09:17→21:50)
--- NOTE | 2022-01-15 11:28 | PM.IMPN ---
Progress Note: A&P Assessment and Plan (1) Sepsis: Code(s): A41.9 - Sepsis, unspecified organism Status: Acute Assessment and Plan: - No longer meeting sepsis criteria. - Blood cultures and urine culture pending. - Cystitis present as evidence by CT exam performed in ED as well as urinalysis. - Diverticulitis present as evidence by CT exam performed in 80. - Continue current IV antibiotics of Rocephin and Flagyl pending culture results. - Monitor labs and vitals. (2) Acute UTI: Code(s): N39.0 - Urinary tract infection, site not specified Status: Acute Assessment and Plan: - No longer meeting sepsis criteria. - Urine cultures pending. - CT exam in ED demonstrated cystitis and it correlates with urinalysis results. - Continue IV antibiotics of Rocephin at this time pending culture results. - Monitor labs and vital signs. (3) Altered mental status: Code(s): R41.82 - Altered mental status, unspecified Status: Acute Assessment and Plan: - Patient is mostly at her baseline. She has a chronic dementia and this provider remembers her from previous hospitalizations and she has the same mental status as then. She is slower to attempt to reply which may be an acute on chronic issue, however she is not far from her baseline. (4) Dementia: Code(s): F03.90 - Unspecified dementia without behavioral disturbance Status: Chronic Assessment and Plan: - Continue Aricept (5) Diabetes: Qualifiers: Diabetes mellitus type: type 2 Diabetes mellitus rn long term care insulin use: without intermediate use Diabetes mellitus complication status: without complication Qualified Code(s): E11.9 - Type 2 diabetes mellitus without complications Code(s): E11.9 - Type 2 diabetes mellitus without complications Status: Chronic Assessment and Plan: - Accu-Cheks AC and HS - sliding scale insulin - continue Lantus - Hold all oral hypoglycemics - continue diabetic diet as patient is tolerating without increased signs of pain distress. (6) Hyperlipidemia: Code(s): E78.5 - Hyperlipidemia, unspecified Status: Chronic Assessment and Plan: - continue with Lipitor (7) HTN (hypertension): Qualifiers: Hypertension type: unspecified Qualified Code(s): I10 - Essential (primary) hypertension Code(s): I10 - Essential (primary) hypertension Status: Chronic Assessment and Plan: - continue with metoprolol And lisinopril - monitor vital signs (8) Diverticulitis: Code(s): K57.92 - Diverticulitis of intestine, part unspecified, without perforation or abscess without bleeding Status: Acute Assessment and Plan: - see problem 1. Time Spent With Patient Time with patient: 15 - 25 minutes Subjective Date/time seen: 01/15/22 11:15 This 81-year-old female patient was examined at the bedside today in interval assessment after being admitted to the hospital with acute diverticulitis and acute cystitis. She remains confused at this time. Upon my entry into the room I said her name and she answered, what? From that point she would not answer any orientation questions or follow any commands. She appears to be without any acute distress at this time. She is currently received Rocephin and Flagyl for her concurrent infections of cystitis and diverticulitis. She is having adequate urine output. TSH returned low at 0.378 and her T4 is currently pending. Also pending are blood cultures x2 and urine culture. This patient will continue current treatment pending culture results and we will modify or augment the plan of care appropriately based on those results. Review of Systems Review of Systems: ROS unobtainable: Yes unobtainable due to mental status Exam Const: General: comfortable and no acute distress Other: Elderly female patient lying supine in bed at this time
[2022-01-15 12:47] LABS: Glucose Point of Care 129 mg/dl (65-105)
[2022-01-15 13:38] LABS: Free T4 Free Thyroxine Reflex 1.28 ng/dL (0.78-2.19)
[2022-01-15 14:20] LABS: Total Triiodothyronine (T3) 0.77 NG/ML (0.97-1.69)
[2022-01-15 17:44] LABS: Glucose Point of Care 193 mg/dl (65-105)
[2022-01-15] MEDS: DONEPEZIL HCL 5 MG TABLET PO (21:24)
[2022-01-15] MEDS: ATORVASTATIN 20 MG TABLET PO (21:24)
[2022-01-15 22:53] LABS: Glucose Point of Care 246 mg/dl (65-105)
[2022-01-16] VITALS (11 sets, daily range): BP systolic 113–167; BP diastolic 71–95; PULSE 68–91; RESP 14–28; TEMP 36.3–36.6; O2SAT 93–98
[2022-01-16] MEDS: SODIUM CHLORIDE 0.9% IV 1,000 ML 100 ML IV CONT ×3 (00:08→22:12)
[2022-01-16 05:46] LABS: Basophils Percent Auto 0.6 % (0.2-1.2); Eosinophils Absolute Auto 0.1 K/mm3 (0-0.3); Eosinophils Percent Auto 1.5 % (0-4.4); Hematocrit 33.5 % (37.0-47.0); Hemoglobin 10.4 g/dL (12.0-15.0); Immature Granulocyte Absolute 0.02 K/mm3 (0.00-0.031); Immature Granulocyte Percent A 0.3 % (0-0.5); Lymphocytes Absolute Auto 1.47 K/mm3 (0.9-3.2); Lymphocytes Percent Auto 21.9 % (18.3-44.2); Mean Corpuscular Hemoglobin 27.9 pg (26-34); Mean Corpuscular Volume 89.8 fl (80-100); Mean Platelet Volume 8.9 fl (7.4-10.4); Monocytes Percent Auto 15.4 % (2.6-8.5); Neutrophils Absolute Auto 4.1 K/mm3 (1.3-6.7); Neutrophils Percent Auto 60.3 % (45.5-73.1); Platelet Count Result 202 k/mm3 (150-375); Red Blood Count 3.73 M/mm3 (4.2-5.4); Red Cell Distribution Width 14.6 % (11.5-14.5); White Blood Count 6.7 K/mm3 (4.5-10.0)
[2022-01-16 06:01] LABS: Alanine Aminotransferase 13 U/L (6-35); Albumin Level 2.7 g/dL (3.5-5.1); Alkaline Phosphatase 70 U/L (38-126); Anion Gap 6 mmol/L (8-16); Aspartate Amino Transferase 17 U/L (14-36); Bilirubin,Total 0.4 mg/dL (0.2-1.3); Blood Urea Nitrogen 11 mg/dL (7-17); Calcium 7.9 mg/dL (8.4-10.2); Carbon Dioxide 23 mmol/L (22-30); Chloride 107 mmol/L (98-107); Estimated CRCL calculation 44 ml/min; Estimated Glomerular Filt Rate > 60; Glucose 110 mg/dL (65-110); Magnesium 1.6 mg/dL (1.6-2.3); Potassium 3.5 mmol/L (3.4-5.0); Sodium 136 mmol/L (137-145)
[2022-01-16] MEDS: metroNIDAZOLE 500 MG/ISO 100ML 500 MG/100 ML BAG 100 MG IVPB (06:22)
[2022-01-16] MEDS: MAGNESIUM SULF 2 GM/WATER 50ML 2 GM/50 ML BAG IVPB (08:04)
[2022-01-16 08:33] LABS: Glucose Point of Care 96 mg/dl (65-105)
[2022-01-16 08:49] LABS: Transferrin 148 mg/dL (206-381)
[2022-01-16 08:52] LABS: Iron 21 ug/dL (37-170)
--- NOTE | 2022-01-16 09:00 | PM.IMPN ---
Progress Note: A&P Assessment and Plan (1) Sepsis: Code(s): A41.9 - Sepsis, unspecified organism Status: Acute Assessment and Plan: - No longer meeting sepsis criteria. - Blood cultures NGTD - urine culture Klebsiella pneumonia - Cystitis present as evidence by CT exam performed in ED as well as urinalysis. - Diverticulitis present as evidence by CT exam performed in ED. - change IV to p.o. Augmentin and p.o. Flagyl - Continue IV fluids - Monitor labs and vitals. (2) Acute UTI: Code(s): N39.0 - Urinary tract infection, site not specified Status: Acute Assessment and Plan: - No longer meeting sepsis criteria. - Urine cultures Klebsiella pneumoniae - CT exam in ED demonstrated cystitis and it correlates with urinalysis results. - change IV antibiotics to p.o. Augmentin - Monitor labs and vital signs. (3) Acute metabolic encephalopathy: Code(s): G93.41 - Metabolic encephalopathy Status: Acute Assessment and Plan: - Patient is mostly at her baseline. - Noted chronic dementia - Continue to trend mental status - Probably worsened with infection - Seems stable at this time (4) Dementia: Code(s): F03.90 - Unspecified dementia without behavioral disturbance Status: Chronic Assessment and Plan: - Continue Aricept (5) Diabetes: Qualifiers: Diabetes mellitus complication status: without complication Diabetes mellitus shelter insulin use: without terminal computer operator use Diabetes mellitus type: type 2 Qualified Code(s): E11.9 - Type 2 diabetes mellitus without complications Code(s): E11.9 - Type 2 diabetes mellitus without complications Status: Chronic Assessment and Plan: - Current glucose 110 - A1c 7.3 - Accu-Cheks AC and HS - sliding scale insulin - continue Lantus - Hold all oral hypoglycemics - continue diabetic diet as patient is tolerating without increased signs of pain distress. (6) Hyperlipidemia: Code(s): E78.5 - Hyperlipidemia, unspecified Status: Chronic Assessment and Plan: - continue with Lipitor (7) HTN (hypertension): Qualifiers: Hypertension type: unspecified Qualified Code(s): I10 - Essential (primary) hypertension Code(s): I10 - Essential (primary) hypertension Status: Chronic Assessment and Plan: - Current BP is 134/71 - continue with metoprolol And lisinopril - Trend BP - Adjust therapy as indicated - monitor vital signs (8) Diverticulitis: Code(s): K57.92 - Diverticulitis of intestine, part unspecified, without perforation or abscess without bleeding Status: Acute Assessment and Plan: - see problem 1. (9) Anemia: Code(s): D64.9 - Anemia, unspecified Status: Acute Assessment and Plan: - H/H 10.4/33.5 - Anemia labs iron 21, TIBC 303, present situation 7, ferritin 88.9, B12 367, folate 9.8, transferrin 148 - Supplement iron 324 mg p.o. b.i.d. - trend labs Time Spent With Patient Time with patient: Greater than 35 minutes Subjective Date/time seen: 01/16/22 09:00 Interval history: 01/16/22 0900 Patient does seem to be okay. She stated that she feels okay. However she was unable to give me a complete review of systems due to the patient's mental status. She did smile and nod her head with questions however sometimes would look at me with a blank stare. urine culture did grow Klebsiella pneumoniae. Did convert patient's antibiotics oral options at this time. Patient seems to probably at her baseline mentally. 01/15/22? 11:15 This 81-year-old female patient was examined at the bedside today in interval assessment after being admitted to the hospital with acute diverticulitis and acute cystitis.? She remains confused at this time.? Upon my entry into the room I said her name and she answered, maverick
[2022-01-16 09:02] LABS: Percent Iron Saturation 7 % (20-50)
[2022-01-16 09:46] LABS: Folic Acid 9.8 ng/mL (2.76->20)
[2022-01-16] MEDS: INSULIN GLARGINE (*BKC) 100 UNITS/ML 10 UNITS SUB-Q ×3 (09:49→21:22)
[2022-01-16] MEDS: buPROPion HCL XL (24 HR) 150 MG TABCR PO (09:51)
[2022-01-16] MEDS: METOPROLOL TARTRATE 50 MG TAB PO ×2 (09:51→21:11)
[2022-01-16] MEDS: lisinopriL 10 MG TABLET PO (09:51)
[2022-01-16] MEDS: MIRABEGRON 50 MG ER TABLET PO (09:51)
[2022-01-16] MEDS: ASPIRIN 81 MG ENTERIC TABLET PO (09:51)
[2022-01-16] MEDS: ENOXAPARIN 40 MG/0.4 ML SYRINGE SUB-Q (09:51)
[2022-01-16 12:26] LABS: Glucose Point of Care 188 mg/dl (65-105)
[2022-01-16] MEDS: AMOXICILLIN/CLAVULANATE K 875-125 MG TAB 1 TABLET PO ×2 (12:28→21:11)
[2022-01-16] MEDS: metroNIDAZOLE 250 MG TABLET 500 MG PO ×2 (15:00→21:11)
[2022-01-16 17:20] LABS: Glucose Point of Care 177 mg/dl (65-105)
[2022-01-16] MEDS: FERROUS SULFATE 324 MG TABLET PO (17:25)
[2022-01-16] MEDS: DONEPEZIL HCL 5 MG TABLET PO (21:11)
[2022-01-16] MEDS: ATORVASTATIN 20 MG TABLET PO (21:11)
[2022-01-16 21:28] LABS: Glucose Point of Care 283 mg/dl (65-105)
[2022-01-17] VITALS (8 sets, daily range): BP systolic 140–151; BP diastolic 57–81; PULSE 74–84; RESP 16–20; TEMP 36.3–37; O2SAT 97–98
[2022-01-17 05:46] LABS: Alanine Aminotransferase 16 U/L (6-35); Albumin Level 3.1 g/dL (3.5-5.1); Alkaline Phosphatase 93 U/L (38-126); Anion Gap 7 mmol/L (8-16); Aspartate Amino Transferase 21 U/L (14-36); Bilirubin,Total 0.4 mg/dL (0.2-1.3); Blood Urea Nitrogen 12 mg/dL (7-17); Calcium 8.7 mg/dL (8.4-10.2); Carbon Dioxide 23 mmol/L (22-30); Chloride 104 mmol/L (98-107); Estimated CRCL calculation 44 ml/min; Estimated Glomerular Filt Rate > 60; Glucose 193 mg/dL (65-110); Magnesium 1.6 mg/dL (1.6-2.3); Potassium 3.7 mmol/L (3.4-5.0); Sodium 134 mmol/L (137-145)
[2022-01-17 06:08] LABS: Basophils Percent Auto 0.5 % (0.2-1.2); Eosinophils Absolute Auto 0.2 K/mm3 (0-0.3); Eosinophils Percent Auto 2.8 % (0-4.4); Hematocrit 38.3 % (37.0-47.0); Hemoglobin 12.1 g/dL (12.0-15.0); Immature Granulocyte Absolute 0.04 K/mm3 (0.00-0.031); Immature Granulocyte Percent A 0.5 % (0-0.5); Lymphocytes Absolute Auto 1.05 K/mm3 (0.9-3.2); Lymphocytes Percent Auto 12.9 % (18.3-44.2); Mean Corpuscular HGB Conc 31.6 g/dl (32-36); Mean Corpuscular Hemoglobin 28.5 pg (26-34); Mean Corpuscular Volume 90.3 fl (80-100); Mean Platelet Volume 9.4 fl (7.4-10.4); Monocytes Percent Auto 12.3 % (2.6-8.5); Neutrophils Absolute Auto 5.8 K/mm3 (1.3-6.7); Platelet Count Result 243 k/mm3 (150-375); Red Blood Count 4.24 M/mm3 (4.2-5.4); Red Cell Distribution Width 14.3 % (11.5-14.5); White Blood Count 8.1 K/mm3 (4.5-10.0)
[2022-01-17] MEDS: MAGNESIUM SULF 4 GM/WATER100ML 4 GM/100 ML BAG IVPB (06:49)
[2022-01-17] MEDS: metroNIDAZOLE 250 MG TABLET 500 MG PO (06:51)
[2022-01-17 08:35] LABS: Glucose Point of Care 218 mg/dl (65-105)
[2022-01-17] MEDS: METOPROLOL TARTRATE 50 MG TAB PO (09:16)
[2022-01-17] MEDS: lisinopriL 10 MG TABLET PO (09:16)
[2022-01-17] MEDS: buPROPion HCL XL (24 HR) 150 MG TABCR PO (09:17)
[2022-01-17] MEDS: ASPIRIN 81 MG ENTERIC TABLET PO (09:17)
[2022-01-17] MEDS: FERROUS SULFATE 324 MG TABLET PO (09:17)
[2022-01-17] MEDS: AMOXICILLIN/CLAVULANATE K 875-125 MG TAB 1 TABLET PO (09:17)
[2022-01-17] MEDS: MIRABEGRON 50 MG ER TABLET PO (09:17)
[2022-01-17] MEDS: ERGOCALCIFEROL 50,000 UNIT CAPSULE 50000 UNITS PO (09:17)
--- NOTE | 2022-01-17 09:30 | PM.DS ---
DS: Admitting Diagnosis Discharge Date 01/17/22 0930 Admitting Diagnosis Sepsis, UTI, Diverticulitis DS: Discharge Diagnosis Discharge Diagnosis (1) Sepsis: Code(s): A41.9 - Sepsis, unspecified organism Status: Acute Assessment and Plan: - No longer meeting sepsis criteria. - Blood cultures NGTD - urine culture Klebsiella pneumonia - Cystitis present as evidence by CT exam performed in ED as well as urinalysis. - Diverticulitis present as evidence by CT exam performed in ED. - change IV to p.o. Augmentin and p.o. Flagyl - Continue IV fluids - Monitor labs and vitals. (2) Acute UTI: Code(s): N39.0 - Urinary tract infection, site not specified Status: Acute Assessment and Plan: - No longer meeting sepsis criteria. - Urine cultures Klebsiella pneumoniae - CT exam in ED demonstrated cystitis and it correlates with urinalysis results. - change IV antibiotics to p.o. Augmentin - Monitor labs and vital signs. (3) Acute metabolic encephalopathy: Code(s): G93.41 - Metabolic encephalopathy Status: Acute Assessment and Plan: - Patient is mostly at her baseline. - Noted chronic dementia - Continue to trend mental status - Probably worsened with infection - Seems stable at this time (4) Dementia: Code(s): F03.90 - Unspecified dementia without behavioral disturbance Status: Chronic Assessment and Plan: - Continue Aricept (5) Diabetes: Qualifiers: Diabetes mellitus complication status: without complication Diabetes mellitus chcf insulin use: without chcf use Diabetes mellitus type: type 2 Qualified Code(s): E11.9 - Type 2 diabetes mellitus without complications Code(s): E11.9 - Type 2 diabetes mellitus without complications Status: Chronic Assessment and Plan: - Current glucose 193 - A1c 7.3 - Accu-Cheks AC and HS - sliding scale insulin - continue Lantus - Hold all oral hypoglycemics - continue diabetic diet as patient is tolerating without increased signs of pain distress. (6) Hyperlipidemia: Code(s): E78.5 - Hyperlipidemia, unspecified Status: Chronic Assessment and Plan: - continue with Lipitor (7) HTN (hypertension): Qualifiers: Hypertension type: unspecified Qualified Code(s): I10 - Essential (primary) hypertension Code(s): I10 - Essential (primary) hypertension Status: Chronic Assessment and Plan: - Current BP is 151/81 - continue with metoprolol And lisinopril - Trend BP - Adjust therapy as indicated - monitor vital signs (8) Diverticulitis: Code(s): K57.92 - Diverticulitis of intestine, part unspecified, without perforation or abscess without bleeding Status: Acute Assessment and Plan: - see problem 1. (9) Anemia: Code(s): D64.9 - Anemia, unspecified Status: Acute Assessment and Plan: - H/H 12.1/38.3 - Anemia labs iron 21, TIBC 303, present situation 7, ferritin 88.9, B12 367, folate 9.8, transferrin 148 - Supplement iron 324 mg p.o. b.i.d. - Add Miralax and Colace - trend labs Plan Did call to update son about discharge and planning at this time. All questions answered and plan of care was updated DS: Summary Hospital Course Hospital Course: Patient is an 81-year-old female with a past medical history of diabetes, Alzheimer's, hypertension, hyperlipidemia who presented to ED with increased lethargy. UA did indicate possible infection urine culture did grow Klebsiella pneumonia. Patient did meet sepsis criteria with an elevated lactate. Patient was hydrated the ED and continues fluids were given. Patient was also started IV antibiotics which have been converted to p.o.. Patient's mental status has seem to improve however patient is alert oriented x1 at baseline. Blood cultures were taken an
[2022-01-17 11:59] LABS: Glucose Point of Care 284 mg/dl (65-105)
[2022-01-17] MEDS: DOCUSATE SODIUM 100 MG CAPSULE PO (13:34)
[2022-01-17] MEDS: ENOXAPARIN 40 MG/0.4 ML SYRINGE SUB-Q (13:38)
[2022-01-17] MEDS: polyethylene glycoL 3350 17 GM POWD.PACK PO (13:38)
[2022-01-17] MEDS: INSULIN ASPART (*BKC) 100 UNITS/ML SUB-Q (13:43)
[2022-01-17 14:16] LABS: Glucose Point of Care 305 mg/dl (65-105)
== END 2022-01-17 14:50 | DRG 871 ==
LOC: ANHED 15:27 → ANH2MED 17:17
PROVIDERS: Emergency Medicine; Nurse Practitioner; Nurse Practitioner Adult Health; Admitting Provider Internal Medicine; Emergency Provider General Practice; PCP Family Medicine; Visit Provider Nurse Practitioner
DX: A41.9 Sepsis, unspecified organism (principal); G93.41 Metabolic encephalopathy; N30.00 Acute cystitis without hematuria; E87.2 Acidosis; K57.32 Diverticulitis of large intestine without perforation or abscess without bleeding; B96.1 Klebsiella pneumoniae [K. pneumoniae] as the cause of diseases classified elsewhere; G30.9 Alzheimer's disease, unspecified; F02.80 Dementia in other diseases classified elsewhere, unspecified severity, without behavioral disturbance, psychotic disturbance, mood disturbance, and anxiety; D32.0 Benign neoplasm of cerebral meninges; E11.9 Type 2 diabetes mellitus without complications; E78.5 Hyperlipidemia, unspecified; I10 Essential (primary) hypertension; D64.9 Anemia, unspecified; Z20.822 Contact with and (suspected) exposure to COVID-19; Z79.4 Long term (current) use of insulin; Z79.82 Long term (current) use of aspirin; Z79.84 Long term (current) use of oral hypoglycemic drugs; Z95.810 Presence of automatic (implantable) cardiac defibrillator
CPT/HCPCS: 36415; 51701; 70450; 71045; 74177; 80053; 81001; 82607; 82728; 82746; 82948; 83036; 83540; 83550; 83605; 83690; 83735; 84439; 84443; 84466; 84480; 85025; 85610; 85730; 86140; 87040; 87077; 87086; 87186; 93005; 96365; 99285; A9270; C9803; J0131; J0696; J1650; J1815; J3475; J7030; J7040; Q9967; U0003; U0005

== ENCOUNTER 2024-05-26 12:57 | Outpatient (CLI) | payer MEDICARE, SELFPAY ==
--- NOTE | 2024-05-26 | ECHO_ITS ---
Patient Info Name: Angelica Kim Age: 83 years : 1940 Gender: Female Ht: 66 in Wt: 140 lbs BSA: 1.72 m2 HR: 72 bpm BP: 152 / 101 mmHg Technical Quality: Poor, Other Exam Date: 05/26/2024 1:08 PM Exam Location: Echo Lab Patient Status: Outpatient Admit Date: 05/26/2024 Staff Ordering Physician: ACE, DOMINICK Dodge Riffler Tender: Alejandro Waters RDCS Attending Provider: ACEDOMINICK Referring Physician: PAULINO, ACE; Exam Type: CA echo doppler color flow Study Info Indications - NONISCHEMIC CARDIOMYOPATHY Complete two-dimensional, color flow and Doppler transthoracic echocardiogram is performed. Reason for Poor Study: poor echocardiographic windows Summary 1. Complete two-dimensional, color flow and Doppler transthoracic echocardiogram is performed. 2. Very technically difficult study with very limited views. 3. The left ventricle is normal in size and systolic function. There is moderate concentric left ventricular hypertrophy. The left ventricular ejection fraction is visually estimated to be 55-60%. 4. The right ventricle is normal in size and systolic function. 5. Linear artifact in right ventricle suggestive of catheter(s), pacemaker lead(s), or ICD lead(s). Left Ventricle The left ventricle is normal in size and systolic function. There is moderate concentric left ventricular hypertrophy. The left ventricular ejection fraction is visually estimated to be 55-60%. Right Ventricle The right ventricle is normal in size and systolic function. Linear artifact in right ventricle suggestive of catheter(s), pacemaker lead(s), or ICD lead(s). Left Atria The left atrium is not well visualized. Right Atria The right atrium is not well visualized. Atrial Septum The atrial septum is not well visualized. Aortic Valve The aortic valve appears to be opening. Pulmonic Valve The pulmonic valve is not well visualized. Mitral Valve The mitral valve is sclerotic but opens well. Tricuspid Valve The tricuspid valve is not well visualized. There is trace tricuspid regurgitation by color Doppler. Pericardium/Pleural Prominent epicardial fat pad. Aorta The aortic root is not well visualized. Left Ventricular Outflow Tract Name Value Normal LVOT 2D LVOT Diameter 2.0 cm Pulmonic Valve Name Value Normal RVOT Doppler RVOT Peak Gradient 1 mmHg PV Doppler PV Peak Gradient 2 mmHg Mitral Valve Name Value Normal MV Doppler MV Decel [place] 254 cm/s2 MV PHT 39 ms MV Area (PHT) 5.6 cm2 4.0-5.0 MV Diastolic Function MV E Peak Velocity 34 cm/s MV A Peak Velocity 62 cm/s MV E/A 0.5 MV Decel Time 134 ms MV Annular TDI MV E/e' (Septal) 8.9 <=8.0 MV E/e' (Lateral) 5.9 <=8.0 MV E/e' (Average) 7.4 Tricuspid Valve Name Value Normal TV Regurgitation Doppler TR Peak Velocity 235 cm/s TR Peak Gradient 22 mmHg Aortic Valve Name Value Normal AV Regurgitation 2D LVOT Area 3.0 cm2 Ventricles Name Value Normal LV Dimensions 2D/MM IVS Diastolic Thickness (2D) 1.3 cm 0.6-1.0 LVID Diastole (2D) 4.4 cm 3.8-5.2 LVIW Diastolic Thickness (2D) 1.2 cm 0.6-0.9 LVID Systole (2D) 3.5 cm 2.2-3.5 LVOT Diameter 2.0 cm LV Mass (2D Cubed) 205.01 g 67.00-162.00 LV Mass Index (2D Cubed) 119 g/m2 43-95 Relative Wall Thickness (2D) 0.56 LV Fractional Shortening/Ejection Fraction 2D/MM LV Fractional Shortening (2D) 21 % 27-45 LV EF (2D Teicholz) 43 % 54-74 Report Signatures
== END 2024-05-26 12:58 | disposition home or self-care (01) ==
LOC: ANHCARD 12:57
PROVIDERS: PCP Family Medicine
DX: I51.7 Cardiomegaly (principal); I42.8 Other cardiomyopathies
CPT/HCPCS: 93306